=== PATIENT | male | born 1960 | race Caucasian/White ===

== ENCOUNTER 2018-07-27 09:59 | Emergency (ER) | payer BC, SELFPAY ==
[2018-07-27 10:00] VITALS: BP 178/118; PULSE 94; RESP 16; TEMP 36.7; O2SAT 100
--- NOTE | 2018-07-27 10:11 | DI.RAD.S_ITS ---
PROCEDURE: XR TOE RT MIN 2V INDICATIONS: infection, osteo? TECHNIQUE: 4 views of the right second toe(s) acquired. COMPARISON: None. FINDINGS: Bones: No acute fractures or dislocations. Soft tissue swelling overlying the tip of the right second toe is identified without underlying osseous erosions. No suspicious bony lesions. Soft tissues: No suspicious soft tissue densities. No radiographic evidence for soft tissue gas. IMPRESSION: Soft tissue swelling of the distal tip of the right second toe without underlying osseous abnormalities to suggest osteomyelitis. Dictated by: Aric Padron M.D. on 07/27/2018 at 10:49 Approved by: Aric Padron M.D. on 07/27/2018 at 10:51
--- NOTE | 2018-07-27 10:14 | ED.LOWEXIN ---
HPI - Extremity Injury (Lower) General Chief Complaint: Wound/Laceration Stated Complaint: R FOOT SECOND TOE OPEN INJURY,TYPE 2 DIABETIC Time Seen by Provider: 07/27/18 10:06 Source: patient Mode of arrival: ambulatory Limitations: no limitations History of Present Illness HPI Narrative: 57-year-old male nonsmoker with history of type 2 diabetes presents with a few days of worsening redness, swelling and pain of a toe on his right foot. 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 He states he does not have great shoes. He denies any systemic symptoms such as fever, chills nor nausea or vomiting. He states there has been some clearish drainage from the toe. He states it started as blood-filled blister and is of all to what we see today. complaint: foot injury Onset (ago): day(s) Type of Injury: unknown Place: home Severity: mild Relieving factors: nothing Exacerbating factors: weight bearing and movement Associated symptoms: swelling Other symptoms: none Related Data Home Medications Medication Instructions Recorded Confirmed Lipitor 1 tab PO DAILY 07/27/18 07/27/18 atenolol 100 mg PO DAILY 07/27/18 07/27/18 glipizide 1 tab PO DAILY 07/27/18 07/27/18 hydrochlorothiazide 25 mg PO DAILY 07/27/18 07/27/18 metformin 1,000 mg PO BID 07/27/18 07/27/18 Previous Rx's Medication Instructions Recorded amoxicillin-pot clavulanate 1 tab PO BID 14 Days #28 tab 07/27/18 [Augmentin] Allergies Allergy/AdvReac Type Severity Reaction Status Date / Time No Known Drug Allergies Allergy Verified 07/27/18 11:13 Review of Systems Constitutional Denies chills, Denies fever(s), Denies lethargy and Denies weakness Eyes Denies change in vision, Denies eye discharge, Denies irritation and Denies loss of vision ENT Ears, Nose, Mouth, and Throat: Denies change in voice, Denies neck pain and Denies sore throat Cardiovascular Denies chest pain, Denies irregular heart rhythm, Denies lightheadedness, Denies palpitations, Denies dyspnea, Denies dyspnea on exertion and Denies orthopnea Respiratory Denies cough, Denies dyspnea, Denies dyspnea on exertion and Denies wheezing Gastrointestinal Gastrointestinal: Denies abdominal pain, Denies change in bowel habits, Denies diarrhea, Denies nausea and Denies vomiting Genitourinary Denies hematuria, Denies flank pain, Denies urinary incontinence and Denies urinary urgency Musculoskeletal Denies neck pain Integumentary/Breasts Denies pruritus, Denies erythema, Denies rash, Reports skin pain, Reports skin swelling, Reports skin ulcer and Reports wounds Neurologic Denies confusion, Denies loss of vision and Denies weakness Psychiatric Denies anxiety, Denies confusion, Denies depression, Denies homicidal ideation and Denies suicidal ideation Endocrine Denies palpitations Hematologic/Lymphatic Denies easy bruising Allergic/Immunologic Denies wheezing [facility]LY [facility] Social History Smoking Status: Never smoker Exam Narrative Exam Narrative: GENERAL: 57-year-old male pleasant, anxious, morbidly obese, mild distress HEAD: Atraumatic. Normocephalic. No temporal or scalp tenderness. EYES: Pupils equal round and reactive. Extraocular motions intact. No scleral icterus. No injection or drainage. ENT: Nose without bleeding, purulent drainage or septal hematoma. Throat without erythema, tonsillar hypertrophy or exudate. Uvula midline. Airway patent. NECK: Trachea midline. No JVD or lymphadenopathy. Supple, nontender, no meningeal signs. CARDIOVASCULAR: Regular rate and rhythm without murmurs, gallops, or rubs. RESPIRATORY: Clear to auscultation. Breath sounds equal bilaterally. No wheezes, rales, or rhonchi. GASTROINTESTINAL: Abdomen soft, non-tender, nondistended. No hepato-splenomegaly, or palpable masses. No guarding. EXTREMITIES: Right 2nd toe swollen, painful, erythematous. Dry ulcer, sensation in tact but decreased. Wound culture obtained. BACK: Nontender without deformity or crepitance. No flank tenderness. NEURO: AOx3. SKIN: No rash or erythema. See above for description of 2nd toe Initial Vital Signs Initial Vital Signs: Vital Signs Temperature 98.1 F 07/27/18 10:00 Pulse Rate 94 H 07/27/18 10:00 Respiratory Rate 16 07/27/18 10:00 Blood Pressure 178/118 H 07/27/18 10:00 Pulse Oximetry 100 07/27/18 10:00 Course Orders Ordered: ED Orders 07/27/18 10:11 XR toe RT min 2V Stat 07/27/18 10:15 Wound Culture and Gram Stain Stat 07/27/18 11:09 Basic Metabolic Panel Stat C-Reactive Protein Quant Stat Complete Blood Count AUTO DIFF Stat Erythrocyte Sedimentation Rate Stat Hemoglobin A1C% w Est Avg Glu Stat Vital Signs - 8 hr 07/27/18 10:00 07/27/18 11:59 Temperature 98.1 F Pulse Rate 94 H 83 Respiratory Rate 16 18 Blood Pressure 178/118 H 159/97 H Pulse Oximetry 100 97 MDM - Extremity Injury (Lower) Lab Data Result diagrams: 07/27/18 11:09 07/27/18 11:09 Lab Results 07/27/18 07/27/18 07/27/18 Range/Units 11:09 11:09 11:09 WBC (4.5-11.0) X10^3/uL RBC (4.5-5.9) X10^6/uL Hgb (13.5-17.5) g/dL Hct (41-53) % MCV (80-100) fL MCH (26-34) PG MCHC (30-36) % RDW (11.6-14.8) % Plt Count (150-400) X10^3/uL Neut % (Auto) (50-75) % Lymph % (Auto) (25-40) % [place] % (Auto) (3-14) % Eos % (Auto) (2-4) % Baso % (Auto) (0-2) % Neut # (Auto) (7445-0343) /uL Lymph # (Auto) (8932-1214) /uL [place] # (Auto) (0-900) /uL Eos # (Auto) (0-450) /uL Baso # (Auto) (0-100) /uL ESR 11 (0-15) MM/HR Sodium (137-145) mmol/L Potassium (3.4-5.1) mmol/L Chloride (98-107) mmol/L Carbon Dioxide (22-32) mmol/L BUN (9-20) mg/dL Creatinine (0.66-1.25) mg/dL Estimated GFR (>60) mL/min BUN/Creatinine Ratio (6-22) Glucose (70-100) mg/dL Hemoglobin A1c 6.6 H (4.0-6.0) % Calcium (8.4-10.2) mg/dL C-Reactive Protein 1.1 H (<1.0) mg/dL 07/27/18 07/27/18 Range/Units 11:09 11:09 WBC 5.9 (4.5-11.0) X10^3/uL RBC 4.52 (4.5-5.9) X10^6/uL Hgb 13.5 (13.5-17.5) g/dL Hct 38.8 L (41-53) % MCV 85.7 (80-100) fL MCH 29.9 (26-34) PG MCHC 34.9 (30-36) % RDW 13.1 (11.6-14.8) % Plt Count 214 (150-400) X10^3/uL Neut % (Auto) 61.2 (50-75) % Lymph % (Auto) 25.1 (25-40) % [place] % (Auto) 11.4 (3-14) % Eos % (Auto) 1.5 L (2-4) % Baso % (Auto) 0.8 (0-2) % Neut # (Auto) 3600 (3826-1816) /uL Lymph # (Auto) 1500 (1489-2419) /uL [place] # (Auto) 700 (0-900) /uL Eos # (Auto) 100 (0-450) /uL Baso # (Auto) 0 (0-100) /uL ESR (0-15) MM/HR Sodium 141 (137-145) mmol/L Potassium 3.9 (3.4-5.1) mmol/L Chloride 106 (98-107) mmol/L Carbon Dioxide 26 (22-32) mmol/L BUN 27 H (9-20) mg/dL Creatinine 0.80 (0.66-1.25) mg/dL Estimated GFR > 60.0 (>60) mL/min BUN/Creatinine Ratio 33.8 H (6-22) Glucose 182 H (70-100) mg/dL Hemoglobin A1c (4.0-6.0) % Calcium 8.9 (8.4-10.2) mg/dL C-Reactive Protein (<1.0) mg/dL Discharge Plan Departure Patient Disposition: Home Clinical Impression: Cellulitis Qualifiers: Site of cellulitis: extremity Site of cellulitis of extremity: toe Laterality: right Qualified Code(s): L03.031 - Cellulitis of right toe Discharge Date/Time: 07/27/18 12:00 Interventions: ED Discharge Assessment Last Done: 07/27/18 11:59 Instructions: DI for Cellulitis -- Adult Activity Restrictions/Additional Instructions: *You have been diagnosed with [right 2nd toe cellulitis] *What to do: *Take medications as directed *Follow up with your primary care provider in 2-3 days, call for an appointment. Let them know you were seen in the Emergency Department and that we ask that you be seen in follow up. It would seem reasonable to follow with Wound Care and I've included their information. *Return to ER if you should have any new, worsening or concerning symptoms Prescriptions: New amoxicillin-pot clavulanate [Augmentin] 875-125 mg tablet 1 tab PO BID 14 Days Qty: 28 RF: 0 No Action metformin 500 mg Tablet 1,000 mg PO BID RF: 0 atenolol 100 mg Tablet 100 mg PO DAILY RF: 0 hydrochlorothiazide 25 mg Tablet 25 mg PO DAILY RF: 0 Lipitor 1 tab PO DAILY RF: 0 glipizide 1 tab PO DAILY RF: 0 Referrals: Nikhil Luna MD [Physician] -
--- NOTE | 2018-07-27 10:17 | ED_ITS ---
HPI - Extremity Injury (Lower) General Chief Complaint: Wound/Laceration Stated Complaint: R FOOT SECOND TOE OPEN INJURY,TYPE 2 DIABETIC Time Seen by Provider: 07/27/18 10:06 Source: patient Mode of arrival: ambulatory Limitations: no limitations History of Present Illness HPI Narrative: 57-year-old male nonsmoker with history of type 2 diabetes presents with a few days of worsening redness, swelling and pain of a toe on his right foot. 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 He states he does not have great shoes. He denies any systemic symptoms such as fever, chills nor nausea or vomiting. He states there has been some clearish drainage from the toe. He states it started as blood-filled blister and is of all to what we see today. complaint: foot injury Onset (ago): day(s) Type of Injury: unknown Place: home Severity: mild Relieving factors: nothing Exacerbating factors: weight bearing and movement Associated symptoms: swelling Other symptoms: none Related Data Home Medications Medication Instructions Recorded Confirmed Lipitor 1 tab PO DAILY 07/27/18 07/27/18 atenolol 100 mg PO DAILY 07/27/18 07/27/18 glipizide 1 tab PO DAILY 07/27/18 07/27/18 hydrochlorothiazide 25 mg PO DAILY 07/27/18 07/27/18 metformin 1,000 mg PO BID 07/27/18 07/27/18 Previous Rx's Medication Instructions Recorded amoxicillin-pot clavulanate 1 tab PO BID 14 Days #28 tab 07/27/18 [Augmentin] Allergies Allergy/AdvReac Type Severity Reaction Status Date / Time No Known Drug Allergies Allergy Verified 07/27/18 11:13 Review of Systems Constitutional Denies chills, Denies fever(s), Denies lethargy and Denies weakness Eyes Denies change in vision, Denies eye discharge, Denies irritation and Denies loss of vision ENT Ears, Nose, Mouth, and Throat: Denies change in voice, Denies neck pain and De nies sore throat Cardiovascular Denies chest pain, Denies irregular heart rhythm, Denies lightheadedness, Denies palpitations, Denies dyspnea, Denies dyspnea on exertion and Denies orthopnea Respiratory Denies cough, Denies dyspnea, Denies dyspnea on exertion and Denies wheezing Gastrointestinal Gastrointestinal: Denies abdominal pain, Denies change in bowel habits, Denies diarrhea, Denies nausea and Denies vomiting Genitourinary Denies hematuria, Denies flank pain, Denies urinary incontinence and Denies urinary urgency Musculoskeletal Denies neck pain Integumentary/Breasts Denies pruritus, Denies erythema, Denies rash, Reports skin pain, Reports skin swelling, Reports skin ulcer and Reports wounds Neurologic Denies confusion, Denies loss of vision and Denies weakness Psychiatric Denies anxiety, Denies confusion, Denies depression, Denies homicidal ideation and Denies suicidal ideation Endocrine Denies palpitations Hematologic/Lymphatic Denies easy bruising Allergic/Immunologic Denies wheezing [facility] Social History Smoking Status: Never smoker Exam Narrative Exam Narrative: GENERAL: 57-year-old male pleasant, anxious, morbidly obese, mild distress HEAD: Atraumatic. Normocephalic. No temporal or scalp tenderness. EYES: Pupils equal round and reactive. Extraocular motions intact. No scleral icterus. No injection or drainage. ENT: Nose without bleeding, purulent drainage or septal hematoma. Throat without erythema, tonsillar hypertrophy or exudate. Uvula midline. Airway patent. NECK: Trachea midline. No JVD or lymphadenopathy. Supple, nontender, no meningeal signs. CARDIOVASCULAR: Regular rate and rhythm without murmurs, gallops, or rubs. RESPIRATORY: Clear to auscultation. Breath sounds equal bilaterally. No wheezes, rales, or rhonchi. GASTROINTESTINAL: Abdomen soft, non-tender, nondistended. No hepato- splenomegaly, or palpable masses. No guarding. EXTREMITIES: Right 2nd toe swollen, painful, erythematous. Dry ulcer, sensation in tact but decreased. Wound culture obtained. BACK: Nontender without deformity or crepitance. No flank tenderness. NEURO: AOx3. SKIN: No rash or erythema. See above for description of 2nd toe Initial Vital Signs Initial Vital Signs: Vital Signs Temperature 98.1 F 07/27/18 10:00 Pulse Rate 94 H 07/27/18 10:00 Respiratory Rate 16 07/27/18 10:00 Blood Pressure 178/118 H 07/27/18 10:00 Pulse Oximetry 100 07/27/18 10:00 Course Orders Ordered: ED Orders 07/27/18 10:11 XR toe RT min 2V Stat 07/27/18 10:15 Wound Culture and Gram Stain Stat 07/27/18 11:09 Basic Metabolic Panel Stat C-Reactive Protein Quant Stat Complete Blood Count AUTO DIFF Stat Erythrocyte Sedimentation Rate Stat Hemoglobin A1C% w Est Avg Glu Stat Vital Signs - 8 hr 07/27/18 10:00 07/27/18 11:59 Temperature 98.1 F Pulse Rate 94 H 83 Respiratory Rate 16 18 Blood Pressure 178/118 H 159/97 H Pulse Oximetry 100 97 MDM - Extremity Injury (Lower) Lab Data Result diagrams: 07/27/18 11:09 07/27/18 11:09 Lab Results 07/27/18 07/27/18 07/27/18 Range/Units 11:09 11:09 11:09 WBC (4.5-11.0) X10^3/uL RBC (4.5-5.9) X10^6/uL Hgb (13.5-17.5) g/dL Hct (41-53) % MCV (80-100) fL MCH (26-34) PG MCHC (30-36) % RDW (11.6-14.8) % Plt Count (150-400) X10^3/uL Neut % (Auto) (50-75) % Lymph % (Auto) (25-40) % [place] % (Auto) (3-14) % Eos % (Auto) (2-4) % Baso % (Auto) (0-2) % Neut # (Auto) (4717-1915) /uL Lymph # (Auto) (9553-0998) /uL [place] # (Auto) (0-900) /uL Eos # (Auto) (0-450) /uL Baso # (Auto) (0-100) /uL ESR 11 (0-15) MM/HR Sodium (137-145) mmol/L Potassium (3.4-5.1) mmol/L Chloride (98-107) mmol/L Carbon Dioxide (22-32) mmol/L BUN (9-20) mg/dL Creatinine (0.66-1.25) mg/dL Estimated GFR (>60) mL/min BUN/Creatinine Ratio (6-22) Glucose (70-100) mg/dL Hemoglobin A1c 6.6 H (4.0-6.0) % Calcium (8.4-10.2) mg/dL C-Reactive Protein 1.1 H (<1.0) mg/dL 07/27/18 07/27/18 Range/Units 11:09 11:09 WBC 5.9 (4.5-11.0) X10^3/uL RBC 4.52 (4.5-5.9) X10^6/uL Hgb 13.5 (13.5-17.5) g/dL Hct 38.8 L (41-53) % MCV 85.7 (80-100) fL MCH 29.9 (26-34) PG MCHC 34.9 (30-36) % RDW 13.1 (11.6-14.8) % Plt Count 214 (150-400) X10^3/uL Neut % (Auto) 61.2 (50-75) % Lymph % (Auto) 25.1 (25-40) % [place] % (Auto) 11.4 (3-14) % Eos % (Auto) 1.5 L (2-4) % Baso % (Auto) 0.8 (0-2) % Neut # (Auto) 3600 (8659-8082) /uL Lymph # (Auto) 1500 (6405-8863) /uL [place] # (Auto) 700 (0-900) /uL Eos # (Auto) 100 (0-450) /uL Baso # (Auto) 0 (0-100) /uL ESR (0-15) MM/HR Sodium 141 (137-145) mmol/L Potassium 3.9 (3.4-5.1) mmol/L Chloride 106 (98-107) mmol/L Carbon Dioxide 26 (22-32) mmol/L BUN 27 H (9-20) mg/dL Creatinine 0.80 (0.66-1.25) mg/dL Estimated GFR > 60.0 (>60) mL/min BUN/Creatinine Ratio 33.8 H (6-22) Glucose 182 H (70-100) mg/dL Hemoglobin A1c (4.0-6.0) % Calcium 8.9 (8.4-10.2) mg/dL C-Reactive Protein (<1.0) mg/dL Discharge Plan Departure Patient Disposition: Home Clinical Impression: Cellulitis Qualifiers: Site of cellulitis: extremity Site of cellulitis of extremity: toe Laterality: right Qualified Code(s): L03.031 - Cellulitis of right toe Discharge Date/Time: 07/27/18 12:00 Interventions: ED Discharge Assessment Last Done: 07/27/18 11:59 Instructions: DI for Cellulitis -- Adult Activity Restrictions/Additional Instructions: *You have been diagnosed with [right 2nd toe cellulitis] *What to do: *Take medications as directed *Follow up with your primary care provider in 2-3 days, call for an appointment. Let them know you were seen in the Emergency Department and that we ask that you be seen in follow up. It would seem reasonable to follow with Wound Care and I've included their information. *Return to ER if you should have any new, worsening or concerning symptoms Prescriptions: New amoxicillin-pot clavulanate [Augmentin] 875-125 mg tablet 1 tab PO BID 14 Days Qty: 28 RF: 0 No Action metformin 500 mg Tablet 1,000 mg PO BID RF: 0 atenolol 100 mg Tablet 100 mg PO DAILY RF: 0 hydrochlorothiazide 25 mg Tablet 25 mg PO DAILY RF: 0 Lipitor 1 tab PO DAILY RF: 0 glipizide 1 tab PO DAILY RF: 0 Referrals: Nikhil Luna MD [Physician] -
[2018-07-27 11:21] LABS: Add Manual Diff / Slide Review NO; Basophils Absolute Auto 0 /uL (0-100); Basophils Percent Auto 0.8 % (0-2); Eosinophils Absolute Auto 100 /uL (0-450); Eosinophils Percent Auto 1.5 % (2-4); Hematocrit 38.8 % (41-53); Hemoglobin 13.5 g/dL (13.5-17.5); Lymphocytes Absolute Auto 1500 /uL (1100-4500); Lymphocytes Percent Auto 25.1 % (25-40); Mean Corpuscular HGB Conc 34.9 % (30-36); Mean Corpuscular Hemoglobin 29.9 PG (26-34); Mean Corpuscular Volume 85.7 fL (80-100); Monocytes Absolute Auto 700 /uL (0-900); Monocytes Percent Auto 11.4 % (3-14); Neutrophils Absolute Auto 3600 /uL (1500-7000); Neutrophils Percent Auto 61.2 % (50-75); Platelet Count 214 X10^3/uL (150-400); Red Blood Cell Count 4.52 X10^6/uL (4.5-5.9); Red Cell Distribution Width 13.1 % (11.6-14.8); White Blood Cell Count 5.9 X10^3/uL (4.5-11.0)
[2018-07-27 11:32] LABS: C-Reactive Protein Quant 1.1 mg/dL (<1.0)
[2018-07-27 11:37] LABS: Hemoglobin A1C% w Est Avg Glu 6.6 % (4.0-6.0)
[2018-07-27 11:44] LABS: Erythrocyte Sedimentation Rate 11 MM/HR (0-15)
[2018-07-27 11:59] VITALS: BP 159/97; PULSE 83; RESP 18; O2SAT 97
[2018-07-27 12:09] LABS: BUN Creatinine Ratio 33.8 (6-22); Blood Urea Nitrogen 27 mg/dL (9-20); Calcium 8.9 mg/dL (8.4-10.2); Carbon Dioxide 26 mmol/L (22-32); Chloride 106 mmol/L (98-107); Estimated Glomerular Filt Rate > 60.0 mL/min (>60); Glucose 182 mg/dL (70-100); HEMOLYSIS < 15 (0-50); Potassium 3.9 mmol/L (3.4-5.1); Sodium 141 mmol/L (137-145)
== END 2018-07-27 12:00 | disposition home or self-care (01) ==
PROVIDERS: Emergency Provider Emergency Medicine
DX: L03.031 Cellulitis of right toe (principal); E11.8 Type 2 diabetes mellitus with unspecified complications
CPT/HCPCS: 73660; 80048; 83036; 85025; 85651; 86140; 87070; 87075; 87077; 87186; 87205; 99283; 99284

== ENCOUNTER → 2018-08-10 09:15 | Outpatient (CLI) | payer BC, SELFPAY | PROVIDERS: PCP Internal Medicine; Visit Provider Podiatrist Primary Podiatric Medicine | DX: E11.621 Type 2 diabetes mellitus with foot ulcer (principal); L97.511 Non-pressure chronic ulcer of other part of right foot limited to breakdown of skin | CPT/HCPCS: 97597 ==

== ENCOUNTER → 2018-08-16 13:45 | Outpatient (CLI) | payer BC, SELFPAY | PROVIDERS: PCP Internal Medicine; Visit Provider Podiatrist Primary Podiatric Medicine | DX: E11.621 Type 2 diabetes mellitus with foot ulcer (principal); L97.511 Non-pressure chronic ulcer of other part of right foot limited to breakdown of skin | CPT/HCPCS: 97597; 99212 ==

== ENCOUNTER → 2018-08-23 08:58 | Outpatient (CLI) | payer BC, SELFPAY | PROVIDERS: PCP Internal Medicine; Visit Provider Podiatrist Primary Podiatric Medicine | DX: E11.621 Type 2 diabetes mellitus with foot ulcer (principal); L97.511 Non-pressure chronic ulcer of other part of right foot limited to breakdown of skin | CPT/HCPCS: 11042 ==

== ENCOUNTER → 2018-08-30 08:35 | Outpatient (CLI) | payer BC, SELFPAY | PROVIDERS: PCP Internal Medicine; Visit Provider Podiatrist Primary Podiatric Medicine | DX: E11.621 Type 2 diabetes mellitus with foot ulcer (principal); E11.40 Type 2 diabetes mellitus with diabetic neuropathy, unspecified; L97.511 Non-pressure chronic ulcer of other part of right foot limited to breakdown of skin | CPT/HCPCS: 11042 ==

== ENCOUNTER → 2018-09-06 08:50 | Outpatient (CLI) | payer BC, SELFPAY | PROVIDERS: PCP Internal Medicine; Visit Provider Podiatrist Primary Podiatric Medicine | DX: E11.621 Type 2 diabetes mellitus with foot ulcer (principal); L97.511 Non-pressure chronic ulcer of other part of right foot limited to breakdown of skin; M25.561 Pain in right knee | CPT/HCPCS: 97597; 99214 ==

== ENCOUNTER → 2018-09-13 09:49 | Outpatient (CLI) | payer BC, SELFPAY | PROVIDERS: PCP Internal Medicine; Visit Provider Podiatrist Primary Podiatric Medicine | DX: E11.621 Type 2 diabetes mellitus with foot ulcer (principal); E11.40 Type 2 diabetes mellitus with diabetic neuropathy, unspecified; L97.511 Non-pressure chronic ulcer of other part of right foot limited to breakdown of skin; R60.0 Localized edema; L90.8 Other atrophic disorders of skin | CPT/HCPCS: 97597 ==

== ENCOUNTER → 2018-09-20 09:18 | Outpatient (CLI) | payer BC, SELFPAY | PROVIDERS: PCP Internal Medicine; Visit Provider Podiatrist Primary Podiatric Medicine | DX: E11.621 Type 2 diabetes mellitus with foot ulcer (principal); L97.511 Non-pressure chronic ulcer of other part of right foot limited to breakdown of skin; M79.674 Pain in right toe(s) | CPT/HCPCS: 97597 ==

== ENCOUNTER → 2018-09-27 15:38 | Outpatient (CLI) | payer BC, SELFPAY | PROVIDERS: PCP Internal Medicine; Visit Provider Podiatrist Primary Podiatric Medicine | DX: E11.621 Type 2 diabetes mellitus with foot ulcer (principal); L97.511 Non-pressure chronic ulcer of other part of right foot limited to breakdown of skin | CPT/HCPCS: 97597 ==

== ENCOUNTER → 2018-10-04 13:13 | Outpatient (CLI) | payer BC, SELFPAY | PROVIDERS: PCP Internal Medicine; Visit Provider Podiatrist Primary Podiatric Medicine | DX: E11.621 Type 2 diabetes mellitus with foot ulcer (principal); E11.40 Type 2 diabetes mellitus with diabetic neuropathy, unspecified; L97.511 Non-pressure chronic ulcer of other part of right foot limited to breakdown of skin | CPT/HCPCS: 97597 ==

== ENCOUNTER 2018-10-11 08:32 | Inpatient (IN) | payer BC, SELFPAY ==
[2018-10-11] VITALS (8 sets, daily range): BP systolic 130–152; BP diastolic 75–93; PULSE 70–79; RESP 16–20; TEMP 36.5–37; O2SAT 94–99; BMI 36.5
--- NOTE | 2018-10-11 08:35 | ED.GENADULT ---
HPI - General Adult General Chief complaint: Extremity Problem,Nontraumatic Stated complaint: Thinks he has DVT in lower right leg Time Seen by Provider: 10/11/18 08:33 Source: patient Mode of arrival: ambulatory Limitations: no limitations History of Present Illness HPI narrative: Patient is a 57-year-old male. He is diabetic with the current diabetic ulcer on his right foot. He is here today for evaluation of what he thinks is a DVT in his right lower extremity. He states he has had a DVT in the past in his left lower extremity. He is not currently on anticoagulation. 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 He states that within the past 24 hours he notice a cramping sensation up his right inner thigh and in his calf. He states that it feels very similar to when he was diagnosed with a DVT in his left lower extremity. He is still ambulatory. He is also here to get his ulcer checked out. He states that he normally gets the bandages changed every Thursday and has not had the bandage changed since last Thursday. He states he has been feeling some pain in his toe which she normally does not have. Related Data Home Medications Medication Instructions Recorded Confirmed Lipitor 1 tab PO DAILY 07/27/18 10/11/18 atenolol 100 mg PO DAILY 07/27/18 10/11/18 glipizide 1 tab PO DAILY 07/27/18 10/11/18 hydrochlorothiazide 25 mg PO DAILY 07/27/18 10/11/18 metformin 1,000 mg PO BID 07/27/18 10/11/18 Allergies Allergy/AdvReac Type Severity Reaction Status Date / Time No Known Drug Allergies Allergy Verified 07/27/18 11:13 Review of Systems Constitutional Constitutional: Denies fever(s) Eyes Eyes: Denies loss of vision Cardiovascular Cardiovascular: Denies chest pain and Denies dyspnea Respiratory Respiratory: Denies dyspnea Gastrointestinal Gastrointestinal: Denies abdominal pain Genitourinary Genitourinary: Denies dysuria Musculoskeletal Comments: Right foot pain cramping in the right lower extremity Integumentary/Breasts Comments: Diabetic ulcer right foot Neurologic Neurologic: Denies focal weakness and Denies loss of vision Comments: Tingling in the right foot Hematologic/Lymphatic Hematologic/Lymphatic: Denies easy bleeding and Denies easy bruising PFS Medical History Diabetes (Inactive) DVT (deep venous thrombosis) (Acute) Social History Smoking Status: Never smoker Social History Smoking Status: Never smoker Exam Initial Vital Signs Initial Vital Signs: Vital Signs Temperature 97.9 F 10/11/18 08:45 Pulse Rate 79 10/11/18 08:45 Respiratory Rate 18 10/11/18 08:45 Blood Pressure 152/93 H 10/11/18 08:45 Pulse Oximetry 96 10/11/18 08:45 Resp Effort & Inspection: normal respiratory effort Cardio Rate: tachycardic Pulses: dorsalis pedis present on the right Skin Other: Patient with macerated 2nd toe on the right foot with swelling and surrounding erythema. Has an ulcer on the dorsum of the toe. Neuro General: alert and awake Cognition: normal cognition Speech: speech normal Extrem General: capillary refill normal Other: Minimal tenderness to the right thigh and right calf does have some tenderness to the anterior becker on the right Psych Appearance: grossly normal and well kempt Course Orders Ordered: ED Orders 10/11/18 08:42 XR foot RT min 3V Stat 10/11/18 08:43 US periph venous low extrem rt Stat 10/11/18 09:11 C-Reactive Protein Quant Stat Complete Blood Count AUTO DIFF Stat Comprehensive Metabolic Panel Stat Erythrocyte Sedimentation Rate Stat Lactate (Lactic Acid) Stat Lipase Stat Partial Thromboplastin Time Stat Procalcitonin Stat Prothrombin Time INR Stat 10/11/18 10:00 Blood Culture Stat Discontinued Medications Vancomycin HCl 2,000 mg/ (Sodium Chloride) 500 mls @ 250 mls/hr IV NOW ONE Stop: 10/11/18 09:25 Ceftriaxone Sodium/Dextrose (Rocephin) 2 gm in 50 mls @ 100 mls/hr IV NOW ONE Stop: 10/11/18 09:54 Last Admin: 10/11/18 09:29 Dose: 100 mls/hr Documented by: MISTY Vital Signs Vital signs: Vital Signs - 8 hr 10/11/18 08:45 10/11/18 10:16 Temperature 97.9 F Pulse Rate 79 71 Respiratory Rate 18 16 Blood Pressure 152/93 H Blood Pressure [Right Arm] 130/75 Pulse Oximetry 96 97 Medical Decision Making Lab Data Lab results reviewed: Yes I reviewed the patient's lab results. Result diagrams: 10/11/18 09:11 10/11/18 09:11 Labs: Lab Results 10/11/18 10/11/18 10/11/18 Range/Units 09:11 09:11 09:11 WBC 10.1 (4.5-11.0) X10^3/uL RBC 4.52 (4.5-5.9) X10^6/uL Hgb 13.3 L (13.5-17.5) g/dL Hct 38.7 L (41-53) % MCV 85.6 (80-100) fL MCH 29.5 (26-34) PG MCHC 34.4 (30-36) % RDW 13.2 (11.6-14.8) % Plt Count 234 (150-400) X10^3/uL Neut % (Auto) 76.5 H (50-75) % Lymph % (Auto) 11.2 L (25-40) % [place] % (Auto) 9.6 (3-14) % Eos % (Auto) 2.2 (2-4) % Baso % (Auto) 0.5 (0-2) % Neut # (Auto) 7800 H (1873-6095) /uL Lymph # (Auto) 1100 (3413-8479) /uL [place] # (Auto) 1000 H (0-900) /uL Eos # (Auto) 200 (0-450) /uL Baso # (Auto) 0 (0-100) /uL ESR 26 H (0-15) MM/HR PT 12.7 (10.1-12.7) SECONDS INR 1.1 (0.9-1.3) APTT 28 (26.4-36.2) SECONDS Sodium (137-145) mmol/L Potassium (3.4-5.1) mmol/L Chloride (98-107) mmol/L Carbon Dioxide (22-32) mmol/L BUN (9-20) mg/dL Creatinine (0.66-1.25) mg/dL Estimated GFR (>60) mL/min BUN/Creatinine Ratio (6-22) Glucose (70-100) mg/dL Lactate (0.7-2.1) mmol/L Calcium (8.4-10.2) mg/dL Total Bilirubin (0.2-1.3) mg/dL AST (17-59) IU/L ALT (21-72) IU/L Alkaline Phosphatase (38-126) U/L C-Reactive Protein (<1.0) mg/dL Total Protein (6.3-8.2) g/dL Albumin (3.5-5.0) g/dL Globulin (1.7-4.1) g/dL Albumin/Globulin Ratio (1.0-2.8) Lipase (23-300) U/L Procalcitonin 0.07 (<0.5) ng/mL 10/11/18 10/11/18 Range/Units 09:11 09:11 WBC (4.5-11.0) X10^3/uL RBC (4.5-5.9) X10^6/uL Hgb (13.5-17.5) g/dL Hct (41-53) % MCV (80-100) fL MCH (26-34) PG MCHC (30-36) % RDW (11.6-14.8) % Plt Count (150-400) X10^3/uL Neut % (Auto) (50-75) % Lymph % (Auto) (25-40) % [place] % (Auto) (3-14) % Eos % (Auto) (2-4) % Baso % (Auto) (0-2) % Neut # (Auto) (9629-8735) /uL Lymph # (Auto) (4083-5788) /uL [place] # (Auto) (0-900) /uL Eos # (Auto) (0-450) /uL Baso # (Auto) (0-100) /uL ESR (0-15) MM/HR PT (10.1-12.7) SECONDS INR (0.9-1.3) APTT (26.4-36.2) SECONDS Sodium 139 (137-145) mmol/L Potassium 4.1 (3.4-5.1) mmol/L Chloride 104 (98-107) mmol/L Carbon Dioxide 24 (22-32) mmol/L BUN 25 H (9-20) mg/dL Creatinine 0.80 (0.66-1.25) mg/dL Estimated GFR > 60.0 (>60) mL/min BUN/Creatinine Ratio 31.3 H (6-22) Glucose 165 H (70-100) mg/dL Lactate 1.7 (0.7-2.1) mmol/L Calcium 9.5 (8.4-10.2) mg/dL Total Bilirubin 0.6 (0.2-1.3) mg/dL AST 22 (17-59) IU/L ALT 14 L (21-72) IU/L Alkaline Phosphatase 69 (38-126) U/L C-Reactive Protein 12.5 H (<1.0) mg/dL Total Protein 7.4 (6.3-8.2) g/dL Albumin 4.0 (3.5-5.0) g/dL Globulin 3.4 (1.7-4.1) g/dL Albumin/Globulin Ratio 1.2 (1.0-2.8) Lipase 101 (23-300) U/L Procalcitonin (<0.5) ng/mL Imaging Data X-ray foot: Radiologist's impression: [address] [address] XRay Report Signed Patient: Juarez Jorge TMR#: [id number] : 2Acct:[id number] Age/Sex: 57 / MDate of Service: 10/11/18 Loc: ED Accession Number: [id number] Procedure: XR foot RT min 3V Ordering Provider: Yo Eckert D.O. PROCEDURE: XR FOOT RT MIN 3V INDICATIONS: 2nd toe ulcer and swelling eval for osteo TECHNIQUE: 3 views of the foot were acquired. COMPARISON: [facility], CR, XR TOE RT MIN 2V, 07/27/2018, 10:25. FINDINGS: Bones: There is now seen hai destruction of the distal phalanx of the 2nd toe. No additional focal bony lytic process can be seen. There is a remote, healed distal 5th metatarsal fracture. No acute fractures are seen. Soft tissues: Soft tissue swelling is seen involving the 2nd toe. IMPRESSION: Hai osteomyelitis of the distal phalanx of the 2nd toe, with bony destruction. Remote, healed distal 5th metatarsal fracture. Dictated by: Derek Albarran M.D. on 10/11/2018 at 8:11 Approved by: Derek Albarran M.D. on 10/11/2018 at 8:15 Venous US: Radiologist's impression: [address] [address] Ultrasound Report Signed Patient: Juarez Jorge TMR#: [id number] : 2Acct:[id number] Age/Sex: 57 / MDate of Service: 10/11/18 Loc: ED Accession Number: [id number] Procedure: US periph venous low extrem rt Ordering Provider: Yo Eckert D.O. PROCEDURE: US PERIPH VENOUS LOW EXTREM RT INDICATIONS: EDEMA TECHNIQUE: Real-time imaging, as well as color and pulse Doppler interrogation, were performed of the lower extremity deep veins from the inguinal ligament to the popliteal fossa. COMPARISON: None. FINDINGS: The common femoral, femoral and popliteal veins are normally compressible, and free of intraluminal thrombus. Color and pulse Doppler demonstrate normal phasic intraluminal flow. There is normal augmentation response to distal compression maneuver. IMPRESSION: Negative for deep venous thrombosis. Dictated by: Derek Albarran M.D. on 10/11/2018 at 8:35 Approved by: Derek Albarran M.D. on 10/11/2018 at 8:42 MDM Narrative Medical decision making narrative: Patient is nontoxic appearing. He has no signs of a DVT on his ultrasound however his right 2nd great toe is concerning for cellulitis/osteomyelitis. This was confirmed by is elevated ESR and CRP and also findings on the x-ray. Patient was given vancomycin and Rocephin. I did inform the patient of his diagnosis. Discussed the case with Dr. Bautista who will admit the patient for further evaluation and treatment. 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
--- NOTE | 2018-10-11 08:42 | DI.RAD.S_ITS ---
PROCEDURE: XR FOOT RT MIN 3V INDICATIONS: 2nd toe ulcer and swelling eval for osteo TECHNIQUE: 3 views of the foot were acquired. COMPARISON: [facility], , XR TOE RT MIN 2V, 07/27/2018, 10:25. FINDINGS: Bones: There is now seen hai destruction of the distal phalanx of the 2nd toe. No additional focal bony lytic process can be seen. There is a remote, healed distal 5th metatarsal fracture. No acute fractures are seen. Soft tissues: Soft tissue swelling is seen involving the 2nd toe. IMPRESSION: Hai osteomyelitis of the distal phalanx of the 2nd toe, with bony destruction. Remote, healed distal 5th metatarsal fracture. Dictated by: Derek Albarran M.D. on 10/11/2018 at 8:11 Approved by: Derek Albarran M.D. on 10/11/2018 at 8:15
--- NOTE | 2018-10-11 08:43 | DI.US.S_ITS ---
PROCEDURE: US PERIPH VENOUS LOW EXTREM RT INDICATIONS: EDEMA TECHNIQUE: Real-time imaging, as well as color and pulse Doppler interrogation, were performed of the lower extremity deep veins from the inguinal ligament to the popliteal fossa. COMPARISON: None. FINDINGS: The common femoral, femoral and popliteal veins are normally compressible, and free of intraluminal thrombus. Color and pulse Doppler demonstrate normal phasic intraluminal flow. There is normal augmentation response to distal compression maneuver. IMPRESSION: Negative for deep venous thrombosis. Dictated by: Derek Albarran M.D. on 10/11/2018 at 8:35 Approved by: Derek Albarran M.D. on 10/11/2018 at 8:42
--- NOTE | 2018-10-11 08:51 | PC.NURSE ---
Pt being treated for diabetic injury on his left toe 2nd digit, it is the same size as his great toe if not bigger, and macerated with skin breakdown. Pt denies pain from this. He reports pain in his right calf that if left alone is 0/10 pain but when he touches it it's a 10/10 pain. He arrived in a dressing that was due to be changed tomorrow. He wanted his other shoe off and he had some dried on blood from the bottom of his foot I was able to wash it off and he said it's probably pug shit. His feet smell of poor hygiene. Otherwise no other open sores or wounds on his feet other than the one stated above.
[2018-10-11 09:24] LABS: Add Manual Diff / Slide Review NO; Basophils Absolute Auto 0 /uL (0-100); Basophils Percent Auto 0.5 % (0-2); Eosinophils Absolute Auto 200 /uL (0-450); Eosinophils Percent Auto 2.2 % (2-4); Hematocrit 38.7 % (41-53); Hemoglobin 13.3 g/dL (13.5-17.5); Lymphocytes Absolute Auto 1100 /uL (1100-4500); Lymphocytes Percent Auto 11.2 % (25-40); Mean Corpuscular HGB Conc 34.4 % (30-36); Mean Corpuscular Hemoglobin 29.5 PG (26-34); Mean Corpuscular Volume 85.6 fL (80-100); Monocytes Absolute Auto 1000 /uL (0-900); Monocytes Percent Auto 9.6 % (3-14); Neutrophils Absolute Auto 7800 /uL (1500-7000); Neutrophils Percent Auto 76.5 % (50-75); Platelet Count 234 X10^3/uL (150-400); Red Blood Cell Count 4.52 X10^6/uL (4.5-5.9); Red Cell Distribution Width 13.2 % (11.6-14.8); White Blood Cell Count 10.1 X10^3/uL (4.5-11.0)
[2018-10-11 09:29] LABS: INR 1.1 (0.9-1.3); Prothrombin Time 12.7 SECONDS (10.1-12.7)
[2018-10-11] MEDS: CEFTRIAXONE 2 GM/50 ML FROZ.PIGGY IV (09:29)
[2018-10-11 09:32] LABS: PTT Partial Thromboplastin Tim 28 SECONDS (26.4-36.2)
[2018-10-11 09:35] LABS: Lactate (Lactic Acid) 1.7 mmol/L (0.7-2.1)
[2018-10-11 09:39] LABS: Alanine Aminotransferase 14 IU/L (21-72); Albumin Globulin Ratio 1.2 (1.0-2.8); Alkaline Phosphatase 69 U/L (38-126); Aspartate Aminotransferase 22 IU/L (17-59); BUN Creatinine Ratio 31.3 (6-22); Bilirubin Total 0.6 mg/dL (0.2-1.3); Blood Urea Nitrogen 25 mg/dL (9-20); Calcium 9.5 mg/dL (8.4-10.2); Carbon Dioxide 24 mmol/L (22-32); Chloride 104 mmol/L (98-107); Estimated Glomerular Filt Rate > 60.0 mL/min (>60); Globulin 3.4 g/dL (1.7-4.1); Glucose 165 mg/dL (70-100); HEMOLYSIS 50 (0-50); Lipase 101 U/L (23-300); Potassium 4.1 mmol/L (3.4-5.1); Sodium 139 mmol/L (137-145); Total Protein 7.4 g/dL (6.3-8.2)
[2018-10-11 09:58] LABS: C-Reactive Protein Quant 12.5 mg/dL (<1.0); Procalcitonin 0.07 ng/mL (<0.5)
[2018-10-11 09:59] LABS: Erythrocyte Sedimentation Rate 26 MM/HR (0-15)
[2018-10-11] MEDS: VANCOMYCIN 2,000 MG in SODIUM CHLORIDE 0.9% 500 ML 250 ML IV (10:56)
--- NOTE | 2018-10-11 12:14 | PM.HP.1 ---
History of Present Illness History of Present Illness Date Patient Seen: 10/11/18 Time Patient Seen: 12:14 Chief complaint: Thinks he has DVT in lower right leg Narrative: Juarez Jorge is a 57-year-old male with past medical history of diabetes, hypertension, hyperlipidemia and previous right 2nd toe ulcer which is chronic and for which he was following and wound care who presented with new right lower extremity pain for the past 2 days. Patient states he went back to work, and started noticing increasing pain 2 days ago, he did not try any new pain medications. He complains of an episode of fevers, chills, and sweatiness 2 days ago that has not returned since. He looked down at his right 2nd toe and it was enlarged and swollen, he has a picture from around 6 days ago which did not show this level of swelling and redness. He has peripheral neuropathy and cannot feel well so he had denied too much pain on his toe, but noted calf pain which has been worsening. He has a history of a DVT on the left and he states his symptoms were similar to that so he came into the emergency room for what he thought was a right lower extremity DVT. He denies any chest pain, shortness of breath, palpitations, nausea, vomiting, headaches, vision changes, or fatigue. In the emergency room, he had a right lower extremity Doppler which was negative for DVT. He did have an x-ray which showed hai osteomyelitis of his right 2nd toe. Upon my initial evaluation he has a purulent material around his 2nd toe on the R with swelling and erythema of that digit. It does not appear to proceed past the toe, and there is no redness or erythema in his calf. I have consulted Orthopedic surgery for assistance with his right 2nd toe osteomyelitis. Patient History Medical History (Updated 10/11/18 @ 12:29 by Piotr Bautista DO) Diabetes (Inactive) DVT (deep venous thrombosis) (Acute) Surgical History (Updated 10/11/18 @ 12:29 by Piotr Bautista DO) H/O hand surgery (Acute) H/O hernia repair (Acute) Social History household members: family Smoking Status: Never smoker Family & Social History Safety & Behavioral: Feels Safe in Current Yes Environment Been Physically Hurt or No Threatened By a Person Tobacco & Substance use: Smoking Status Never smoker alcohol intake frequency a few times a month Substance Use Type does not use Meds Home Medications and Allergies Home Medications Medication Instructions Recorded Confirmed Type Lipitor 1 tab PO DAILY 07/27/18 10/11/18 History atenolol 100 mg PO DAILY 07/27/18 10/11/18 History glipizide 1 tab PO DAILY 07/27/18 10/11/18 History hydrochlorothiazide 25 mg PO DAILY 07/27/18 10/11/18 History metformin 1,000 mg PO BID 07/27/18 10/11/18 History Allergies Allergy/AdvReac Type Severity Reaction Status Date / Time No Known Drug Allergies Allergy Verified 10/11/18 10:25 Review of Systems Review of Systems Narrative: All other systems reviewed with the patient and are negative unless otherwise stated. Exam Vital Signs (past 8 hours): - 10/11/18 08:45 10/11/18 10:16 10/11/18 11:05 Temperature 97.9 F 97.7 F Pulse Rate 79 71 74 Respiratory Rate 18 16 20 Blood Pressure 152/93 H 149/93 H Blood Pressure [Right Arm] 130/75 Pulse Oximetry 96 97 99 Oxygen Delivery Method Room Air Oxygen Flow Rate 0 Narrative Exam Narrative: GENERAL APPEARANCE: Well developed, well nourished, in no acute distress. SKIN: Inspection of the skin reveals no rashes, ulcerations or petechiae. HEENT: The sclerae were anicteric and conjunctivae were pink and moist. Extraocular movements were intact and pupils were equal, round with normal accommodation. External inspection of the ears and nose showed no scars, lesions, or masses. Lips, teeth, and gums showed normal mucosa. The oral mucosa, hard and soft palate, tongue and posterior pharynx were unremarkable. NECK: Supple and symmetric. There was no thyroid enlargement, and no tenderness, or masses were felt. CHEST: Normal AP diameter and normal contour without any kyphoscoliosis. LUNGS: Auscultation of the lungs revealed no wheezes, rhonchi, or rales. CARDIOVASCULAR: There was a regular rate and rhythm without any murmurs, gallops, rubs. Peripheral pulses were 2+ and symmetric. ABDOMEN: Soft and nontender with normal bowel sounds. No ascites was noted. MUSCULOSKELETAL: R 2nd toe tenderness, erythema, warmth. There is a purulent pocket of fluid on the dorsal aspect of the 2nd toe. There is no extension of the erythema beyond the 2nd digit but this digit is approximately twice the size of the surrounding toes. There is a chronic ulcer at the tip of the 2nd toe on the R which does not appear to be acutely infected. EXTREMITIES: No cyanosis, clubbing or edema. NEUROLOGIC: Alert and oriented x 3. Normal affect. Strength is +5/5 in the Upper Extremities and Lower Extremities Bilaterally. Sensation to touch was normal. Objective Labs Result Diagrams: 10/11/18 09:11 10/11/18 09:11 Labs: Laboratory Results - last 24 hr 10/11/18 10/11/18 10/11/18 09:11 09:11 09:11 WBC 10.1 RBC 4.52 Hgb 13.3 L Hct 38.7 L MCV 85.6 MCH 29.5 MCHC 34.4 RDW 13.2 Plt Count 234 Neut % (Auto) 76.5 H Lymph % (Auto) 11.2 L [place] % (Auto) 9.6 Eos % (Auto) 2.2 Baso % (Auto) 0.5 Neut # (Auto) 7800 H Lymph # (Auto) 1100 [place] # (Auto) 1000 H Eos # (Auto) 200 Baso # (Auto) 0 ESR 26 H PT 12.7 INR 1.1 APTT 28 Sodium Potassium Chloride Carbon Dioxide BUN Creatinine Estimated GFR BUN/Creatinine Ratio Glucose Lactate Calcium Total Bilirubin AST ALT Alkaline Phosphatase C-Reactive Protein Total Protein Albumin Globulin Albumin/Globulin Ratio Lipase Procalcitonin 0.07 10/11/18 10/11/18 09:11 09:11 WBC RBC Hgb Hct MCV MCH MCHC RDW Plt Count Neut % (Auto) Lymph % (Auto) [place] % (Auto) Eos % (Auto) Baso % (Auto) Neut # (Auto) Lymph # (Auto) [place] # (Auto) Eos # (Auto) Baso # (Auto) ESR PT INR APTT Sodium 139 Potassium 4.1 Chloride 104 Carbon Dioxide 24 BUN 25 H Creatinine 0.80 Estimated GFR > 60.0 BUN/Creatinine Ratio 31.3 H Glucose 165 H Lactate 1.7 Calcium 9.5 Total Bilirubin 0.6 AST 22 ALT 14 L Alkaline Phosphatase 69 C-Reactive Protein 12.5 H Total Protein 7.4 Albumin 4.0 Globulin 3.4 Albumin/Globulin Ratio 1.2 Lipase 101 Procalcitonin Assessment & Plan Assessment & Plan narrative: Juarez Jorge is a 57-year-old male with past medical history of diabetes, hypertension, hyperlipidemia and previous right 2nd toe ulcer which is chronic and for which he was following and wound care who presented with new right lower extremity pain for the past 2 days, on imaging he was found to have osteomyelitis of his right 2nd toe and is admitted to Medicine for further management. 1. Right 2nd toe osteomyelitis, acute, present on admission -radiography shows osteomyelitis of the right 2nd toe, new from previous imaging. He has elevated CRP, but no leukocytosis. -orthopedic surgery consulted, appreciate assistance, pending recommendations. -continue ceftriaxone, and vancomycin given purulence on exam. - obtain cultures when able 2. Diabetes, chronic, present on admission, control unknown - - [place] sliding scale insulin as inpatient - hold home metformin and glipizide. - A1c in AM 3. HTN, chronic, present on admission - - continue home atenolol and HCTZ 4. HLD, chronic, present on admission - - continue home lipitor, 40 mg daily. Dispo: Admitted as inpatient given his stay is likely to exceed 2 midnights. Code: Full DVT: HSQ BID FEN/GI: NPO pending orthopedic recommendations. Time Spent With Patient Time with patient: Greater than 35 minutes
--- NOTE | 2018-10-11 13:01 | P.CONS_ITS ---
History of Present Illness Consult details Date Patient Seen: 10/11/18 Time Patient Seen: 13:01 Chief complaint: Thinks he has DVT in lower right leg Reason for consult: R 2nd toe infection Requesting provider: Piotr Bautista Narrative: 57-year-old male with a diabetic 2nd toe infection on the right foot. Approximately 2 months ago he had an ulcer on the toe. 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 It seemed to be healing up. He actually brings in pictures over the past several weeks where the toe still had some ulceration but it was dry. He began having increasing pain into the right foot and when he examined the toe it was greatly swollen and appeared to have purulence. His other concern was that he had a DVT in his left leg in the past and he was concerned that he was having the same on now on the right leg. He did run a fever of approximately 3 nights ago but has been afebrile since. No chills. He is a diabetic and has pe ripheral neuropathy up to about the level of his ankles with very poor feeling in the toes. However he has been feeling more pain in the foot in the past several days. [facility] Medical History Diabetes (Inactive) DVT (deep venous thrombosis) (Acute) Surgical History H/O hand surgery (Acute) H/O hernia repair (Acute) Social History household members: family Smoking Status: Never smoker Social History household members: family Smoking Status: Never smoker Meds Home Medications and Allergies Home Medications Medication Instructions Recorded Confirmed Type Lipitor 1 tab PO DAILY 07/27/18 10/11/18 History atenolol 100 mg PO DAILY 07/27/18 10/11/18 History glipizide 1 tab PO DAILY 07/27/18 10/11/18 History hydrochlorothiazide 25 mg PO DAILY 07/27/18 10/11/18 History metformin 1,000 mg PO BID 07/27/18 10/11/18 History Allergies Allergy/AdvReac Type Severity Reaction Status Date / Time No Known Drug Allergies Allergy Verified 10/11/18 10:25 Review of Systems Constitutional Constitutional: Denies chills and Reports fever(s) Cardiovascular Cardiovascular: Denies chest pain Respiratory Respiratory: Denies cough and Denies wheezing Gastrointestinal Gastrointestinal: Denies abdominal pain Musculoskeletal Musculoskeletal: Reports numbness Neurologic Neurologic: Reports numbness Endocrine Endocrine: Denies change in body appearance Hematologic/Lymphatic Hematologic/Lymphatic: Denies easy bleeding Allergic/Immunologic Allergic/Immunologic: Denies wheezing Exam Vital Signs (past 8 hours): - 10/11/18 08:45 10/11/18 10:16 10/11/18 11:05 Temperature 97.9 F 97.7 F Pulse Rate 79 71 74 Respiratory Rate 18 16 20 Blood Pressure 152/93 H 149/93 H Blood Pressure [Right Arm] 130/75 Pulse Oximetry 96 97 99 Oxygen Delivery Method Room Air Oxygen Flow Rate 0 Const Orientation: alert and oriented x3 Extrem Other: Right foot -greatly swollen erythematous 2nd toe. 1 cm dry ulceration on the tip. Wet gangrenous changes along the distal phalanx, primarily yellow in color. Erythema and almost purplish color through the mid phalanx and erythema in the proximal phalanx. No erythema or induration or pain in the remaining toes or foot. Easily able to wiggle the great toe and the remaining lateral 3 toes. There is good capillary refill in all of these toes. Minimal sensation in all toes but decreased all the way up to the ankle bilaterally. Objective Imaging Right 2nd toe x-ray: My impression: Significant erosion of the distal phalanx of the 2nd toe. Possible mild periosteal reaction of the distal aspect of the middle phalanx. These are compared to his x-rays from 07/27/2018 which showed no bony erosion or osteomyelitis changes. Labs Result Diagrams: 10/11/18 09:11 10/11/18 09:11 Labs: Laboratory Results - last 24 hr 10/11/18 10/11/18 10/11/18 09:11 09:11 09:11 WBC 10.1 RBC 4.52 Hgb 13.3 L Hct 38.7 L MCV 85.6 MCH 29.5 MCHC 34.4 RDW 13.2 Plt Count 234 Neut % (Auto) 76.5 H Lymph % (Auto) 11.2 L [place] % (Auto) 9.6 Eos % (Auto) 2.2 Baso % (Auto) 0.5 Neut # (Auto) 7800 H Lymph # (Auto) 1100 [place] # (Auto) 1000 H Eos # (Auto) 200 Baso # (Auto) 0 ESR 26 H PT 12.7 INR 1.1 APTT 28 Sodium Potassium Chloride Carbon Dioxide BUN Creatinine Estimated GFR BUN/Creatinine Ratio Glucose Lactate Calcium Total Bilirubin AST ALT Alkaline Phosphatase C-Reactive Protein Total Protein Albumin Globulin Albumin/Globulin Ratio Lipase Procalcitonin 0.07 10/11/18 10/11/18 09:11 09:11 WBC RBC Hgb Hct MCV MCH MCHC RDW Plt Count Neut % (Auto) Lymph % (Auto) [place] % (Auto) Eos % (Auto) Baso % (Auto) Neut # (Auto) Lymph # (Auto) [place] # (Auto) Eos # (Auto) Baso # (Auto) ESR PT INR APTT Sodium 139 Potassium 4.1 Chloride 104 Carbon Dioxide 24 BUN 25 H Creatinine 0.80 Estimated GFR > 60.0 BUN/Creatinine Ratio 31.3 H Glucose 165 H Lactate 1.7 Calcium 9.5 Total Bilirubin 0.6 AST 22 ALT 14 L Alkaline Phosphatase 69 C-Reactive Protein 12.5 H Total Protein 7.4 Albumin 4.0 Globulin 3.4 Albumin/Globulin Ratio 1.2 Lipase 101 Procalcitonin Assessment & Plan Assessment & Plan narrative: Osteomyelitis of the right 2nd toe with wet gangrenous toe. With this much erosion, I do not think there is any way to save the toe and my recommendation is for amputation of the right 2nd toe. I anticipate amputation at the metatarsal phalangeal junction. He just had some food so we cannot do this today. I think a course of overnight IV antibiotics may be beneficial and help us decrease some of the swelling and erythema proximally, which may make closure easier after surgery. Risks and benefits of surgery were discussed including but not limited to medical risks with heart attack, stroke, , DVT, PE, wound healing complications, bleeding, injury to nerves with pain, numbness, paresthesias, failure to alleviate infection, need for further amputation, need for other further surgery. I did explain that most likely he will go on to have a bunion of the great toe once the 2nd toe is missing. This is something that can be dealt with electively in the future. For now the main issue is getting rid of gangrenous toe. We will plan on surgery tomorrow. All questions were answered. Consents were obtained.
--- NOTE | 2018-10-11 15:31 | PC.NURSE ---
Pt. received from ED at 1045. A&O x3, pleasant, no c/o pain. Right second toe very swollen, red, with open wound. (see Wound Care Doc.) Wound open to air. Confirmed osteomyelitis, pt. discussed POC with Dr. Jensen, plan for amputation tomorrow.
[2018-10-11] MEDS: ACETAMINOPHEN 325 MG TABLET 650 MG PO (16:43)
[2018-10-11] MEDS: OXYCODONE IR 5 MG TABLET PO ×2 (16:43→20:12)
[2018-10-11] MEDS: INSULIN ASPART 100 UNIT/ML INSULN PEN SUBCUT (16:46)
[2018-10-11] MEDS: VANCOMYCIN 1,500 MG/300 ML FROZ.PIGGY 200 MG IV (20:12)
[2018-10-11] MEDS: HEPARIN 5,000 UNIT/ML VIAL 5000 UNIT SUBCUT (20:12)
[2018-10-11] MEDS: ATORVASTATIN 20 MG TABLET 40 MG PO (20:12)
[2018-10-11] MEDS: SODIUM CHLORIDE 0.9% FLUSH 10 ML IV (20:20)
[2018-10-12] VITALS (14 sets, daily range): BP systolic 126–167; BP diastolic 68–112; PULSE 62–73; RESP 12–18; TEMP 36.3–37; O2SAT 97–99; BMI 35.9
[2018-10-12] MEDS: ACETAMINOPHEN 325 MG TABLET 650 MG PO ×2 (00:10→06:59)
[2018-10-12] MEDS: OXYCODONE IR 5 MG TABLET PO ×4 (00:10→21:58)
[2018-10-12] MEDS: VANCOMYCIN 1,500 MG/300 ML FROZ.PIGGY 200 MG IV ×3 (03:00→18:29)
[2018-10-12] MEDS: SODIUM CHLORIDE 0.9% FLUSH 10 ML IV ×2 (03:00→09:13)
[2018-10-12 05:29] LABS: Add Manual Diff / Slide Review NO; Basophils Absolute Auto 100 /uL (0-100); Eosinophils Absolute Auto 300 /uL (0-450); Eosinophils Percent Auto 4.5 % (2-4); Hematocrit 36.4 % (41-53); Hemoglobin 12.6 g/dL (13.5-17.5); Lymphocytes Absolute Auto 1800 /uL (1100-4500); Lymphocytes Percent Auto 29.9 % (25-40); Mean Corpuscular HGB Conc 34.6 % (30-36); Mean Corpuscular Hemoglobin 29.4 PG (26-34); Monocytes Absolute Auto 700 /uL (0-900); Monocytes Percent Auto 10.9 % (3-14); Neutrophils Absolute Auto 3300 /uL (1500-7000); Neutrophils Percent Auto 53.7 % (50-75); Platelet Count 218 X10^3/uL (150-400); Red Blood Cell Count 4.28 X10^6/uL (4.5-5.9); White Blood Cell Count 6.1 X10^3/uL (4.5-11.0)
[2018-10-12 05:33] LABS: BUN Creatinine Ratio 28.3 (6-22); Blood Urea Nitrogen 17 mg/dL (9-20); Calcium 8.3 mg/dL (8.4-10.2); Carbon Dioxide 26 mmol/L (22-32); Chloride 103 mmol/L (98-107); Estimated Glomerular Filt Rate > 60.0 mL/min (>60); Glucose 152 mg/dL (70-100); HEMOLYSIS < 15 (0-50); Magnesium 1.8 mg/dL (1.6-2.3); Potassium 3.9 mmol/L (3.4-5.1); Sodium 136 mmol/L (137-145)
[2018-10-12 05:36] LABS: Hemoglobin A1C% w Est Avg Glu 6.6 % (4.0-6.0)
--- NOTE | 2018-10-12 06:37 | PC.NURSE ---
Patient has been NPO since midnight. Medicated once with Percolone 5mg and Tylenol 650mg, effective for pain to Rt 2nd toe. Toe has been LEVI, no drainage, but does have odor. IV Vancomycin given. VSS.
--- NOTE | 2018-10-12 07:49 | PM.PN.1 ---
Subjective Subjective Date Patient Seen: 10/12/18 Time Patient Seen: 07:49 Interval history: No new changes. Still some discomfort in the right toe. Exam Vital Signs (past 8 hours): - 10/12/18 00:15 10/12/18 03:15 Temperature 97.7 F Pulse Rate 62 Respiratory Rate 16 Blood Pressure 135/88 Pulse Oximetry 98 97 Oxygen Delivery Method Room Air Oxygen Flow Rate 0 Const Orientation: alert and oriented x3 Extrem Other: Right 2nd toe -decreased swelling throughout and improved erythema proximally. Decreased sensation in the foot up to the ankle. Objective Labs Result Diagrams: 10/12/18 05:15 10/12/18 05:15 Labs: Laboratory Results - last 24 hr 10/11/18 10/11/18 10/11/18 09:11 09:11 09:11 WBC 10.1 RBC 4.52 Hgb 13.3 L Hct 38.7 L MCV 85.6 MCH 29.5 MCHC 34.4 RDW 13.2 Plt Count 234 Neut % (Auto) 76.5 H Lymph % (Auto) 11.2 L [place] % (Auto) 9.6 Eos % (Auto) 2.2 Baso % (Auto) 0.5 Neut # (Auto) 7800 H Lymph # (Auto) 1100 [place] # (Auto) 1000 H Eos # (Auto) 200 Baso # (Auto) 0 ESR 26 H PT 12.7 INR 1.1 APTT 28 Sodium Potassium Chloride Carbon Dioxide BUN Creatinine Estimated GFR BUN/Creatinine Ratio Glucose Hemoglobin A1c Lactate Calcium Magnesium Total Bilirubin AST ALT Alkaline Phosphatase C-Reactive Protein Total Protein Albumin Globulin Albumin/Globulin Ratio Lipase Procalcitonin 0.07 10/11/18 10/11/18 10/12/18 09:11 09:11 05:15 WBC 6.1 RBC 4.28 L Hgb 12.6 L Hct 36.4 L MCV 85.0 MCH 29.4 MCHC 34.6 RDW 13.0 Plt Count 218 Neut % (Auto) 53.7 D Lymph % (Auto) 29.9 [place] % (Auto) 10.9 Eos % (Auto) 4.5 H Baso % (Auto) 1.0 Neut # (Auto) 3300 Lymph # (Auto) 1800 [place] # (Auto) 700 Eos # (Auto) 300 Baso # (Auto) 100 ESR PT INR APTT Sodium 139 Potassium 4.1 Chloride 104 Carbon Dioxide 24 BUN 25 H Creatinine 0.80 Estimated GFR > 60.0 BUN/Creatinine Ratio 31.3 H Glucose 165 H Hemoglobin A1c Lactate 1.7 Calcium 9.5 Magnesium Total Bilirubin 0.6 AST 22 ALT 14 L Alkaline Phosphatase 69 C-Reactive Protein 12.5 H Total Protein 7.4 Albumin 4.0 Globulin 3.4 Albumin/Globulin Ratio 1.2 Lipase 101 Procalcitonin 10/12/18 10/12/18 05:15 05:15 WBC RBC Hgb Hct MCV MCH MCHC RDW Plt Count Neut % (Auto) Lymph % (Auto) [place] % (Auto) Eos % (Auto) Baso % (Auto) Neut # (Auto) Lymph # (Auto) [place] # (Auto) Eos # (Auto) Baso # (Auto) ESR PT INR APTT Sodium 136 L Potassium 3.9 Chloride 103 Carbon Dioxide 26 BUN 17 Creatinine 0.60 L Estimated GFR > 60.0 BUN/Creatinine Ratio 28.3 H Glucose 152 H Hemoglobin A1c 6.6 H Lactate Calcium 8.3 L Magnesium 1.8 Total Bilirubin AST ALT Alkaline Phosphatase C-Reactive Protein Total Protein Albumin Globulin Albumin/Globulin Ratio Lipase Procalcitonin Assessment & Plan Assessment & Plan narrative: Right 2nd toe osteomyelitis. Plan is to take him to the operating room today for a right 2nd toe amputation. All questions were again answered and we discussed surgery. He may have some clear liquids for breakfast and then back to npo diet. Surgery planned for this afternoon.
[2018-10-12] MEDS: CEFTRIAXONE 1 GM/50 ML FROZ.PIGGY IV (09:13)
[2018-10-12] MEDS: hydroCHLOROthiazide 25 MG TABLET PO (09:13)
[2018-10-12] MEDS: ATENOLOL 50 MG TABLET 100 MG PO (09:13)
[2018-10-12 11:12] LABS: Vancomycin Trough 12.3 ug/mL (10-20)
[2018-10-12] MEDS: VANCOMYCIN TROUGH 1 REQUEST MISC (11:25)
[2018-10-12] MEDS: INSULIN ASPART 100 UNIT/ML INSULN PEN SUBCUT ×2 (11:33→22:00)
--- NOTE | 2018-10-12 15:10 | PM.PN.1 ---
Subjective Subjective Date Patient Seen: 10/12/18 Interval history: The patient is a 57-year-old male who was admitted to the hospital for right diabetic foot infection. Patient has osteomyelitis of the right 2nd digit. In addition there is evidence of overlying cellulitis. He is scheduled to go to the operating room this afternoon. Patient reports getting some feeling back in his foot. Typically he has numbness under the foot. He has no nausea vomiting or diarrhea, no shortness of breath or chest pain. Exam Vital Signs (past 8 hours): - 10/12/18 09:31 10/12/18 11:31 Temperature 98.4 F Pulse Rate 64 Respiratory Rate 16 Blood Pressure 138/97 H Pulse Oximetry 98 99 Oxygen Delivery Method Room Air Oxygen Flow Rate 0 Narrative Exam Narrative: Pleasant gentleman resting comfortably in no obvious distress Lungs: Clear to auscultation Cardiac exam: Regular rate and rhythm normal S1-S2 Abdomen soft nontender nondistended Extremities: Right great toe, sausage in appearance erythema spreading up the forefoot, no warmth, no ulceration Objective Labs Result Diagrams: 10/12/18 05:15 10/12/18 05:15 Labs: Laboratory Results - last 24 hr 10/12/18 10/12/18 10/12/18 05:15 05:15 05:15 WBC 6.1 RBC 4.28 L Hgb 12.6 L Hct 36.4 L MCV 85.0 MCH 29.4 MCHC 34.6 RDW 13.0 Plt Count 218 Neut % (Auto) 53.7 D Lymph % (Auto) 29.9 [place] % (Auto) 10.9 Eos % (Auto) 4.5 H Baso % (Auto) 1.0 Neut # (Auto) 3300 Lymph # (Auto) 1800 [place] # (Auto) 700 Eos # (Auto) 300 Baso # (Auto) 100 Sodium 136 L Potassium 3.9 Chloride 103 Carbon Dioxide 26 BUN 17 Creatinine 0.60 L Estimated GFR > 60.0 BUN/Creatinine Ratio 28.3 H Glucose 152 H Hemoglobin A1c 6.6 H Calcium 8.3 L Magnesium 1.8 Vancomycin Trough 10/12/18 10:36 WBC RBC Hgb Hct MCV MCH MCHC RDW Plt Count Neut % (Auto) Lymph % (Auto) [place] % (Auto) Eos % (Auto) Baso % (Auto) Neut # (Auto) Lymph # (Auto) [place] # (Auto) Eos # (Auto) Baso # (Auto) Sodium Potassium Chloride Carbon Dioxide BUN Creatinine Estimated GFR BUN/Creatinine Ratio Glucose Hemoglobin A1c Calcium Magnesium Vancomycin Trough 12.3 Assessment & Plan Assessment & Plan narrative: Right 2nd toe osteomyelitis, acute, present on admission -radiography shows osteomyelitis of the right 2nd toe, new from previous imaging. He has elevated CRP, but no leukocytosis. -orthopedic surgery consulted, appreciate assistance, pending recommendations. -continue ceftriaxone, and vancomycin given purulence on exam. - obtain cultures when able 2. Diabetes, chronic, present on admission, control unknown - - [place] sliding scale insulin as inpatient - hold home metformin and glipizide. - A1c in AM 3. HTN, chronic, present on admission - - continue home atenolol and HCTZ 4. HLD, chronic, present on admission - - continue home lipitor, 40 mg daily.
--- NOTE | 2018-10-12 16:11 | PM.PREOP ---
Pre-operative Note Interval Note History & Physical reviewed/Exam performed by Physician: Yes Changes to H&P: No
--- NOTE | 2018-10-12 16:12 | PM.OP.1 ---
Operative Date/Time/Diagnoses Date of procedure: 10/12/18 Time of procedure: 17:26 Pre-op diagnosis: Right 2nd toe osteomyelitis and abscess Post-op diagnosis: same Procedure & Clinicians Procedure: Right 2nd toe amputation at the PIP joint Same procedure as scheduled: Yes Indications: 57-year-old male with a infected right 2nd toe. This had severe osteomyelitis with bony destruction and it was felt that surgical resection would be the best way to treat this. Risks and benefits of surgery discussed and appropriate consents obtained. Surgeon: Kavon Jensen Click Yes if Unassisted: Yes Anesthesia Type: General Operative Notes Findings: None Closure Type: primary Specimen(s): other (Wound cultures) Estimated Blood Loss (mL): 2 Procedure in detail: The patient was brought to the operating room and intubated on the table. Preoperative antibiotics were held for cultures. A time-out was performed. Attention was turned towards the well-marked right 2nd toe. The right leg was prepped and draped in the standard sterile fashion. A tourniquet had been placed on the thigh but was not inflated. First we spread open through the draining purulence ulcer up top and took cultures and sent this to microbiology. He appeared to have a good plantar skin flap and I made a fishmouth incision with a large plantar flap and a short dorsal flap at the level of the PIP joint. Above this dorsally was purulent material. I sharply cut down until we came to the PIP joint and then sharply transected this. His skin was examined. He still had no capillary refill or bleeding at the tip of the plantar skin flap and we transected this approximately 5 mm more proximally. He had good blood flow in the soft tissue as well as the skin at this point. There was some tension across the flap edges when I tried to pull them together so I used a rongeur to trim back the tip of the proximal phalanx. We could then closed the soft tissue without tension. The wound was copiously irrigated. The superficial tissue was closed with 3 O Vicryl. The skin was closed with retention sutures. A sterile dressing was placed. He was then extubated and brought to recovery room with no complications. The amputation was opened up. There was minimal bone in the distal phalanx. This tissue was rongeured and sent to microbiology for culture as well. Complications: none Post-operative Condition: stable Disposition: PACU Plan for aftercare: Inpatient IV antibiotics.
--- NOTE | 2018-10-12 16:26 | CM.DANOTE ---
Discharge Planning/Care Management DCP: assessment: case received, EMR reviewed. Discussed in Team Rounds. Pt is a 57 year old male who admitted to care of hospitalist team yesterday. Payer: [facility] out of [facility]. PCP: Dr. Delphine Hansen Pt has also been followed by podiatry. Consulting: orthopedic team: Dr. Jensen consulted. Dr. Rondon confirmed in rounds today that pt had diagnosis of R 2nd toe osteomylitis with overlying cellulitis and is non-insulin dependent diabetic/on oral medications at home. Now using on insulin protocol. Surgery with Dr. Jensen was planned for today with partial amputation of toe likely. Went to room to meet with pt and introduced self and role. Pt was still in surgery: white board in his room updated with DCP team contact info. P: DCP team to check in with pt tomorrow and continue the assessment process. Is unclear at this point if IV antibiotics will be continued after d/c.....team will be following. CM Discharge Assessment Start: 10/12/18 16:25 Freq: Status: Active Protocol: Document 10/12/18 16:25 ITV (Rec: 10/12/18 16:26 ITV [id number]) Discharge Planning Assessment Advance Directives? No Advance Directives on File No History Provided By Medical Record Prior Living Arrangements House Household Members family Independent with ADL's Yes Is patient alert and oriented? Yes Whiteboard Updated in Patient Room with Yes name and ext. # of Medicare Interviewer Review Status In Process
[2018-10-12] MEDS: CEFAZOLIN 2 GM/100 ML FROZ.PIGGY IV (17:00)
--- NOTE | 2018-10-12 17:08 | SUR.OPER ---
Supine on padded OR bed, head on pillow, arms secured on padded arm boards at <90 degrees abduction, legs uncrossed, safety belt at thigh, tape over blanket over lower legs.
[2018-10-12] MEDS: BUPIVACAINE 0.25% W/ EPI 30 ML VIAL INJ (17:13)
--- NOTE | 2018-10-12 17:18 | PC.NURSE ---
Addendum entered by Mary Farr R.N. 10/12/18 17:24: OR tin room to take pt. Original Note: 1600- Pt's daughter and son visiting. 97%RA, LS clear, denies SOB. Second toe right foot, less swelling today than yesterday, less to no odor, and less erythema, no weeping, PP+, CMS+, Surgery on way to take pt to OR for amputation of second toe to right foot. Anesthesiologist to check blood sugar. Pt BP 149/98, HR 64. Using urinal indep in bed. Call light in reach.
[2018-10-12] MEDS: LACTATED RINGERS 1,000 ML 125 ML IV (18:29)
[2018-10-12] MEDS: HYDROMORPHONE 0.5 MG INJ 0.2 MG IV ×2 (18:29→21:58)
[2018-10-12] MEDS: DOCUSATE 100 MG CAPSULE PO (21:57)
[2018-10-12] MEDS: METFORMIN HCL 500 MG TABLET 1000 MG PO (21:57)
[2018-10-13] MEDS: HYDROMORPHONE 0.5 MG INJ 0.2 MG IV ×3 (00:56→10:12)
[2018-10-13 01:00] VITALS: BP 142/96; PULSE 75; RESP 18; TEMP 36.7; O2SAT 98
[2018-10-13] MEDS: OXYCODONE IR 5 MG TABLET PO ×4 (02:40→16:30)
[2018-10-13] MEDS: VANCOMYCIN 1,500 MG/300 ML FROZ.PIGGY 200 MG IV ×2 (02:40→11:26)
[2018-10-13 03:00] VITALS: BP 152/99; RESP 17; TEMP 36.9; O2SAT 98
[2018-10-13 06:06] LABS: Add Manual Diff / Slide Review NO; Basophils Absolute Auto 100 /uL (0-100); Basophils Percent Auto 0.7 % (0-2); Eosinophils Absolute Auto 200 /uL (0-450); Eosinophils Percent Auto 2.2 % (2-4); Hematocrit 39.7 % (41-53); Hemoglobin 13.6 g/dL (13.5-17.5); Lymphocytes Absolute Auto 1700 /uL (1100-4500); Lymphocytes Percent Auto 19.6 % (25-40); Mean Corpuscular HGB Conc 34.3 % (30-36); Mean Corpuscular Hemoglobin 29.2 PG (26-34); Mean Corpuscular Volume 85.3 fL (80-100); Monocytes Absolute Auto 800 /uL (0-900); Monocytes Percent Auto 9.8 % (3-14); Neutrophils Absolute Auto 5700 /uL (1500-7000); Neutrophils Percent Auto 67.7 % (50-75); Platelet Count 256 X10^3/uL (150-400); Red Blood Cell Count 4.65 X10^6/uL (4.5-5.9); Red Cell Distribution Width 12.8 % (11.6-14.8); White Blood Cell Count 8.5 X10^3/uL (4.5-11.0)
[2018-10-13 06:14] LABS: Blood Urea Nitrogen 12 mg/dL (9-20); Calcium 8.7 mg/dL (8.4-10.2); Carbon Dioxide 26 mmol/L (22-32); Chloride 103 mmol/L (98-107); Estimated Glomerular Filt Rate > 60.0 mL/min (>60); Glucose 136 mg/dL (70-100); HEMOLYSIS < 15 (0-50); Magnesium 1.7 mg/dL (1.6-2.3); Potassium 4.1 mmol/L (3.4-5.1); Sodium 137 mmol/L (137-145)
[2018-10-13 07:20] VITALS: BP 152/95; PULSE 71; RESP 16; TEMP 36.6; O2SAT 98
[2018-10-13] MEDS: INSULIN ASPART 100 UNIT/ML INSULN PEN SUBCUT ×3 (07:20→16:31)
--- NOTE | 2018-10-13 08:11 | PM.PNPO.1 ---
Subjective Subjective Date Patient Seen: 10/13/18 Time Patient Seen: 08:11 Interval history: Doing well. Still some pain in the foot but much better than before. He has been up and ambulating. Exam Vital Signs (past 8 hours): - 10/13/18 01:00 10/13/18 03:00 Temperature 98.1 F 98.4 F Pulse Rate 75 Respiratory Rate 18 17 Blood Pressure 142/96 H 152/99 H Pulse Oximetry 98 98 Oxygen Delivery Method Room Air Oxygen Flow Rate 0 Const Orientation: alert and oriented x3 Extrem Other: Right foot dressing clean dry intact. Objective Labs Result Diagrams: 10/13/18 05:35 10/13/18 05:35 Labs: Laboratory Results - last 24 hr 10/12/18 10/13/18 10/13/18 10:36 05:35 05:35 WBC 8.5 RBC 4.65 Hgb 13.6 Hct 39.7 L MCV 85.3 MCH 29.2 MCHC 34.3 RDW 12.8 Plt Count 256 Neut % (Auto) 67.7 Lymph % (Auto) 19.6 L [place] % (Auto) 9.8 Eos % (Auto) 2.2 Baso % (Auto) 0.7 Neut # (Auto) 5700 Lymph # (Auto) 1700 [place] # (Auto) 800 Eos # (Auto) 200 Baso # (Auto) 100 Sodium 137 Potassium 4.1 Chloride 103 Carbon Dioxide 26 BUN 12 Creatinine 0.60 L Estimated GFR > 60.0 BUN/Creatinine Ratio 20.0 Glucose 136 H Calcium 8.7 Magnesium 1.7 Vancomycin Trough 12.3 Assessment & Plan Post-op Postoperative Procedures: Procedures Operation Date: 10/12/18 15:45 Actual Procedures Side Surgeon p 2nd toe amputation Right Kavon Jensen MD stable after right 2nd toe partial amputation. His Gram stain shows gram-positive cocci. A wound culture from 2 months ago grew sensitive Staph aureus as well as strep. Keep him on his current IV antibiotics. We will wait for current cultures and sensitivities.
[2018-10-13] MEDS: DOCUSATE 100 MG CAPSULE PO ×2 (09:24→20:41)
[2018-10-13] MEDS: ENOXAPARIN 30 MG/0.3 ML SYRINGE SUBCUT ×2 (09:24→20:44)
[2018-10-13] MEDS: CEFTRIAXONE 1 GM/50 ML FROZ.PIGGY IV (09:25)
[2018-10-13] MEDS: hydroCHLOROthiazide 25 MG TABLET PO (09:26)
[2018-10-13] MEDS: ATENOLOL 50 MG TABLET 100 MG PO (09:27)
--- NOTE | 2018-10-13 10:49 | PT.IIE ---
Current Diagnoses Type 2 diabetes mellitus with other specified complication (10/11/18) Surgery Performed Operation Date: 10/12/18 15:45 Actual Procedures p 2nd toe amputation(Right) - Kavon Jensen MD Surgical History (Last Reviewed 10/11/18 @ 13:05 by Kavon Jensen MD) H/O hand surgery (Acute) H/O hernia repair (Acute) Medical History (Last Reviewed 10/11/18 @ 13:05 by Kavon Jesnen MD) Diabetes (Inactive) DVT (deep venous thrombosis) (Acute) Physical Therapy Inpatient Evaluation/Re-Eval M1 PT/OT-IP Prior Functional Status Start: 10/13/18 08:22 Freq: NEEDED Status: Active Protocol: Document 10/13/18 09:25 HH (Rec: 10/13/18 10:49 [id number]) Medical Review Prior Functional Status Medical History Reviewed Yes Communication no deficits noted. Able to make needs known. Mobility and Gait independent for home and community mobility without using AD. Activities of Daily Living and IADL's independent for ADLs and IADLs . Able to drive. Social History Household Members family Living Arrangements House Number of Floors (Floors) One Floor Number of Stairs To Enter/Railing? 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 Pt has history of perihperal neuropathy with poor feet sensation who was treated for his infectious wound on R 2nd toe at wound care clinic for the past couple weeks. Other PMHs include: DMII, HTN, hyperlipidemia and previous right 2nd toe ulcer. M2 PT-IP Current Condition Start: 10/13/18 08:22 Freq: NEEDED Status: Active Protocol: Document 10/13/18 09:25 HH (Rec: 10/13/18 10:49 [email or web address]) Physical Therapy Current Condition Current Condition Evaluation Date 10/13/18 Treatment Diagnosis Post op 2nd toe amputation at PIP joint, difficulty in walking Onset Date 10/12/18 Weight Bearing Status Weight Bearing Status Weight Bear as Tolerated Allowed Weight Bearing Amount (enter % Per MD note, primarily to use or #) (%) R heel to WB M3 PT-IP Subjective Start: 10/13/18 08:22 Freq: NEEDED Status: Active Protocol: Document 10/13/18 09:25 (Rec: 10/13/18 10:49 [email or web address]) Subjective Physical Therapy Visit Type Type Initial Evaluation Visit Start Time 09:25 Visit Stop Time 09:50 Total Visit Minutes 25 Notes Pt has been gotten OOB with SBA and FWW. Number of SHRUB GROWER Visits 0 Physical Therapy Visit Comments Patient Comments agreeable to mobilize with PT Patient Goals To return home and work once he is recovered. Therapy Pain Assessment Pain When Pain Assessed After Treatment Pain Present Pain Present Pain Reported Location R 2nd toe Intensity 6 Scale Used Numeric (1 - 10) Description Acute Pain Management Techniques Re-positioning,Timing of Activity with Medications M4 PT-IP Mobility and Gait Start: 10/13/18 08:22 Freq: NEEDED Status: Active Protocol: Document 10/13/18 09:25 (Rec: 10/13/18 10:49 [email or web address]) PT-Bed Mobility Assessment Supine to Sit Supine to Sit Standby Assistance Sit to Supine Sit to Supine Standby Assistance Scooting Scooting to Edge of Bed Standby Assistance Scooting Up and Down in Bed Standby Assistance PT-Transfer Assessment Sit to and From Stand Sit to and from Stand Standby Assistance,Use of Upper Extremities Equipment Transfer Assistive Device Gait Belt,Front Wheeled Walker Orthotic/Prosthetic Devices or Brace: No Transfers Transfer Destination Bed,Chair,Toilet Transfer Technique Stand Step Pivot Transfer Ability Level of Assist Standby Assistance,Use of Upper Extremities Comments Mobility Comments Pt was up in bed upon assessment. He was able to supine to long sit, followed by pivoting his R foot to EOB with SBA. He overall needed SBA for transfers and sit <> stand, and primarily WB through his R heel. He was very safe in general and did not have any LOB episode. Gait Assessment Gait Gait Assistance Required: Standby Assistance Distance (Feet) 120 Able to Maintain Weight Bearing Status Yes During Gait Assistive Devices Assistive Device Gait Belt,Front Wheeled Walker Orthotic/Prosthetic Devices or Brace: No Gait Deviations General Gait Pattern Antalgic,Decreased Stride Length,Decreased Feet Clearance Factors Limiting Gait Function Factors Limiting Gait Function Decreased Activity Tolerance, Decreased Strength,Limited Range of Motion,Pain Comments Gait Comments Pt was able to amb from room to hallway with SBA and FWW. Pt does increase WB through his LLE and B UEs on FWW. He has decreased stance phase due to WB on R heel primarily. He did c/o increase in pain at surgical site after amb and requested to have pain meds from nursing staff. He was transferred to chair with leg elevated and call light within reach. PT-Balance Assessment Sitting Balance and Reactions Static Sitting Balance Ability Normal Dynamic Sitting Balance Ability Normal Standing Balance and Reactions Static Standing Balance Ability Normal Dynamic Standing Balance Ability Good Device Used FWW M5 PT-IP Objective Assessments Start: 10/13/18 08:22 Freq: NEEDED Status: Active Protocol: Document 10/13/18 09:25 HH (Rec: 10/13/18 10:49 [email or web address]) Orientation Orientation/Cognition Level of Alertness Alert Orientation Name,Age,Birthday,Month,Date, Year,Day of Week,Place, Situation Language Function Ability No Deficits Noted Safety Awareness Understands Safety Issues Memory Description No Deficits Noted Gross Range of Motion Upper Extremity ROM Assessment Within Functional Limits Lower Extremity ROM Assessment Within Functional Limits Strength Upper Extremity Strength Assessment Within Functional Limits Lower Extremity Strength Assessment Right Impaired Ankle 4-/5 Coordination Assessment Gross Coordination Gross Coordination WNL Sensation Assessment Sensation Gross Sensation Right LE Impaired,Left LE Impaired Light Touch Impaired Proprioception (Position) Impaired Sensation Description Numbness Comments Sensation Comments decreased sensation to touch for B feet Muscle Tone Muscle Tone WNL Yes M6 PT-IP Treatment Start: 10/13/18 08:22 Freq: NEEDED Status: Active Protocol: Document 10/13/18 09:25 HH (Rec: 10/13/18 10:49 [email or web address]) Physical Therapy Treatment Exercises Exercises Gluteal Sets,Quad Sets Education Education Provided Precautions,Weight Bearing Status,Post-Op Packet,Safety Other Treatments Other Treatment Performed proper full wear in future to increase full contact area with his feet education on regular self assessment on foot skin. M7 PT-IP Assessment and Plan Start: 10/13/18 08:22 Freq: NEEDED Status: Active Protocol: Document 10/13/18 09:25 HH (Rec: 10/13/18 10:49 [email or web address]) PT Summary Assessment and Plan Potential Rehabilitation Potential Excellent Status of Condition at Evaluation Stable Summary Impairments Pain,ROM,Strength,Balance,Bed Mobility,Transfers,Gait, Activity Tolerance Assessment Summary Pt is a low complexity with post op 2nd toe amputation at PIP joint due to chronic ulcer . Pt;s activity order is as tolerated and WBAT, but recommended by surgeon to primarily WB through R heel at this point. Pt overall demonstrates a very good understanding of safety awareness and his current condition. He was able to transfers and amb with overall SBA and FWW. He did c/o increase in pain at surgical site and requested for pain med from nursing staff at the end of session. He is expected to go home with family assistance and possible outpatient wound care service to cont antibiotic tx if necessary. Goals Bed Mobility Goal Independent Transfer Goal Independent,Front Wheeled Walker Gait Goal Independent,Front Wheel Walker Gait Distance 400 Other Goals 3 KING with B rails independently Days to Meet Goals 5 Frequency of Treatment Frequency Of Treatment Twice a Day Treatment Plan Physical Therapy Treatment Plan Bed Mobility Training,Transfer Training,Gait Training, Therapeutic Exercise,Balance Retraining,Post Op Education, Discharge Planning,Hot or Cold Pack,Neuromuscular Re-ed Other Recommendations and Next Treatment reassess pain Focus cont transfer and gait training as beti stair training if possible Recommendations To Nursing Amount of Assist Needed Standby Assistance Discharge Recommendations PT Discharge Recommendations Home with Assistance Other Discharge Recommendations He is expected to go home with family assistance and possible outpatient wound care service to cont antibiotic tx if necessary. Equipment Needed for Home Before pt states his son will get a Discharge FWW if possible if not, FWW for d/c home
[2018-10-13 11:14] LABS: Vancomycin Trough 12.5 ug/mL (10-20)
[2018-10-13] MEDS: METFORMIN XR 500 MG TABLET 1000 MG PO (11:25)
[2018-10-13 11:53] VITALS: BP 139/102; PULSE 71; RESP 18; TEMP 36.6; O2SAT 98
[2018-10-13] MEDS: VANCOMYCIN TROUGH 1 REQUEST MISC (12:04)
--- NOTE | 2018-10-13 14:47 | PC.NURSE ---
Pt up oob w/sba. Pt up in recliner chair for meals, Legs elevated. Pt med x 1 for c/o pain after PT/ambulation in [place]. Good relief stated. Drsg to the L foot/toe intact, + cms.
--- NOTE | 2018-10-13 16:24 | PM.PN.1 ---
Subjective Subjective Date Patient Seen: 10/13/18 Interval history: The patient is a 57-year-old male who was admitted to the hospital for osteomyelitis involving the right 2nd digit of the foot. He is status post amputation of his right 2nd toe. The patient previously was growing g positive organisms from the foot. He had both staph and strep previously. He will remain on IV antibiotics. Patient reports overall he feels much better today. He has no shortness of breath nausea vomiting or diarrhea. Exam Vital Signs (past 8 hours): - 10/13/18 11:53 Temperature 97.8 F Pulse Rate 71 Respiratory Rate 18 Blood Pressure 139/102 H Pulse Oximetry 98 Oxygen Delivery Method Room Air Oxygen Flow Rate 0 Narrative Exam Narrative: Pleasant male resting comfortably in no obvious distress Lungs: Clear to auscultation Cardiac exam: Regular Rate and rhythm normal S1-S2 Abdomen: Soft nontender nondistended Extremities: Right foot with dressing in place Objective Labs Result Diagrams: 10/13/18 05:35 10/13/18 05:35 Labs: Laboratory Results - last 24 hr 10/13/18 10/13/18 10/13/18 05:35 05:35 10:30 WBC 8.5 RBC 4.65 Hgb 13.6 Hct 39.7 L MCV 85.3 MCH 29.2 MCHC 34.3 RDW 12.8 Plt Count 256 Neut % (Auto) 67.7 Lymph % (Auto) 19.6 L [place] % (Auto) 9.8 Eos % (Auto) 2.2 Baso % (Auto) 0.7 Neut # (Auto) 5700 Lymph # (Auto) 1700 [place] # (Auto) 800 Eos # (Auto) 200 Baso # (Auto) 100 Sodium 137 Potassium 4.1 Chloride 103 Carbon Dioxide 26 BUN 12 Creatinine 0.60 L Estimated GFR > 60.0 BUN/Creatinine Ratio 20.0 Glucose 136 H Calcium 8.7 Magnesium 1.7 Vancomycin Trough 12.5 Assessment & Plan Assessment & Plan narrative: Impression 1. Osteomyelitis of the right 2nd digit, status post amputation. Suspect ongoing Gram-positive infection. Will continue IV antibiotics until final culture results are back. 2. Type 2 diabetes, continue sliding scale insulin plus bolus dosing of insulin 3. Hyperlipidemia, continue Lipitor 4. Hypertension would start BERE-inhibitor in discontinue atenolol.
--- NOTE | 2018-10-13 16:59 | PT.IPTN ---
Current Diagnoses Type 2 diabetes mellitus with other specified complication (10/11/18) Surgery Performed Operation Date: 10/12/18 15:45 Actual Procedures p 2nd toe amputation(Right) - Kavon Jensen MD Physical Therapy Treatment Note M2 PT-IP Current Condition Start: 10/13/18 08:22 Freq: NEEDED Status: Active Protocol: Document 10/13/18 09:25 HH (Rec: 10/13/18 10:49 [email or web address]) Physical Therapy Current Condition Current Condition Evaluation Date 10/13/18 Treatment Diagnosis Post op 2nd toe amputation at PIP joint, difficulty in walking Onset Date 10/12/18 Weight Bearing Status Weight Bearing Status Weight Bear as Tolerated Allowed Weight Bearing Amount (enter % Per MD note, primarily to use or #) (%) R heel to WB M3 PT-IP Subjective Start: 10/13/18 08:22 Freq: NEEDED Status: Active Protocol: Document 10/13/18 16:59 AB (Rec: 10/13/18 17:49 AB [id number]) Subjective Physical Therapy Visit Type Type Treatment Note Visit Start Time 16:59 Visit Stop Time 17:16 Total Visit Minutes 17 Number of MEDICAL LAB TECHNICIAN Visits 0 Physical Therapy Visit Comments Patient Comments pt agreeable to do PT Therapy Pain Assessment Pain When Pain Assessed At Rest Pain Present Pain Present Pain Reported Location R 2nd toe Intensity 2 Scale Used Numeric (1 - 10) Pain Management Techniques Re-positioning,Timing of Activity with Medications M4 PT-IP Mobility and Gait Start: 10/13/18 08:22 Freq: NEEDED Status: Active Protocol: Document 10/13/18 16:59 AB (Rec: 10/13/18 17:49 AB [id number]) PT-Bed Mobility Assessment Supine to Sit Supine to Sit Standby Assistance Sit to Supine Sit to Supine Standby Assistance Scooting Scooting to Edge of Bed Standby Assistance Scooting Up and Down in Bed Standby Assistance PT-Transfer Assessment Sit to and From Stand Sit to and from Stand Standby Assistance,Use of Upper Extremities Equipment Transfer Assistive Device Gait Belt,Front Wheeled Walker Orthotic/Prosthetic Devices or Brace: No Gait Assessment Gait Gait Assistance Required: Standby Assistance Distance (Feet) 150 Able to Maintain Weight Bearing Status Yes During Gait Assistive Devices Assistive Device Gait Belt,Front Wheeled Walker Orthotic/Prosthetic Devices or Brace: No Gait Deviations General Gait Pattern Antalgic,Decreased Stride Length,Decreased Feet Clearance,Step-to Gait Factors Limiting Gait Function Factors Limiting Gait Function Decreased Activity Tolerance, Decreased Sensation,Limited Range of Motion,Pain M5 PT-IP Objective Assessments Start: 10/13/18 08:22 Freq: NEEDED Status: Active Protocol: Document 10/13/18 09:25 HH (Rec: 10/13/18 10:49 [email or web address]) Orientation Orientation/Cognition Level of Alertness Alert Orientation Name,Age,Birthday,Month,Date, Year,Day of Week,Place, Situation Language Function Ability No Deficits Noted Safety Awareness Understands Safety Issues Memory Description No Deficits Noted Gross Range of Motion Upper Extremity ROM Assessment Within Functional Limits Lower Extremity ROM Assessment Within Functional Limits Strength Upper Extremity Strength Assessment Within Functional Limits Lower Extremity Strength Assessment Right Impaired Ankle 4-/5 Coordination Assessment Gross Coordination Gross Coordination WNL Sensation Assessment Sensation Gross Sensation Right LE Impaired,Left LE Impaired Light Touch Impaired Proprioception (Position) Impaired Sensation Description Numbness Comments Sensation Comments decreased sensation to touch for B feet Muscle Tone Muscle Tone WNL Yes M6 PT-IP Treatment Start: 10/13/18 08:22 Freq: NEEDED Status: Active Protocol: Document 10/13/18 09:25 HH (Rec: 10/13/18 10:49 [email or web address]) Physical Therapy Treatment Exercises Exercises Gluteal Sets,Quad Sets Education Education Provided Precautions,Weight Bearing Status,Post-Op Packet,Safety Other Treatments Other Treatment Performed proper full wear in future to increase full contact area with his feet education on regular self assessment on foot skin. M7 PT-IP Assessment and Plan Start: 10/13/18 08:22 Freq: NEEDED Status: Active Protocol: Document 10/13/18 16:59 AB (Rec: 10/13/18 17:49 AB [id number]) PT Summary Assessment and Plan Potential Rehabilitation Potential Good Summary Impairments Pain,ROM,Strength,Balance, Sensation,Bed Mobility, Transfers,Gait,Activity Tolerance Progress Towards Goals Progressing Toward Goals Assessment Summary pt doing well with mobility. pt able to maintain weight bearing precaution on RLE but may benefit from front off loading post-op shoe to decrease weight bearing on surgery site especially on uneven surfaces and when pt goes home. will request MD for orders. pt plans to go home and family will assist him. pt doing fairly well with mobility but will continue to assess progress and consistency in mobility especially when new post-op shoe is provided. if pt is able to manage off loading shoe, may only need once a day PT tx frequency but at this time will continue with current tx plan and to assess progress. Goals Bed Mobility Goal Independent Transfer Goal Independent,Front Wheeled Walker Gait Goal Independent,Front Wheel Walker Gait Distance 400 Other Goals 3 KING with B rails independently LTG: improve ambulation using SPC ~ 250 ft SBA Days to Meet Goals 5 Frequency of Treatment Frequency Of Treatment Twice a Day Treatment Plan Physical Therapy Treatment Plan Bed Mobility Training,Transfer Training,Gait Training, Therapeutic Exercise,Balance Retraining,Post Op Education, Discharge Planning,Hot or Cold Pack,Neuromuscular Re-ed, Coordination Retraining Other Recommendations and Next Treatment ambulation; will request MD Focus order for front off loading post-op shoe Recommendations To Nursing Amount of Assist Needed Standby Assistance Discharge Recommendations PT Discharge Recommendations Home with Assistance Equipment Needed for Home Before FWW if not safe with SPC Discharge
[2018-10-13] MEDS: OXYCODONE IR 10 MG TABLET PO ×2 (17:42→21:40)
[2018-10-13] MEDS: VANCOMYCIN 2,000 MG in SODIUM CHLORIDE 0.9% 500 ML 250 ML IV (17:44)
[2018-10-13 19:30] VITALS: BP 153/104; PULSE 80; RESP 18; TEMP 36.6; O2SAT 98
[2018-10-13] MEDS: ATORVASTATIN 10 MG TABLET PO (20:41)
[2018-10-13] MEDS: INSULIN GLARGINE 100 UNIT/ML 3ML PEN 10 UNIT SUBCUT (20:44)
[2018-10-13] MEDS: ONDANSETRON 4 MG ODT PO (21:40)
--- NOTE | 2018-10-13 22:21 | PC.NURSE ---
Patient resting in bed most of the shift. Did get up once with PT, tolerated well, gait steady. Patient did have some increased pain to the rt 2nd toe, received new order for increase in oxycodone. Patient has been calm and cooperative.
[2018-10-14 01:01] VITALS: BP 140/94; PULSE 71; RESP 16; TEMP 36.6; O2SAT 95
[2018-10-14] MEDS: OXYCODONE IR 10 MG TABLET PO ×4 (01:38→22:19)
[2018-10-14] MEDS: VANCOMYCIN 2,000 MG in SODIUM CHLORIDE 0.9% 500 ML 250 ML IV ×2 (01:39→11:08)
[2018-10-14 03:59] VITALS: BP 144/93; PULSE 66; RESP 20; TEMP 36.4; O2SAT 97
[2018-10-14 05:58] LABS: Add Manual Diff / Slide Review NO; Basophils Absolute Auto 100 /uL (0-100); Basophils Percent Auto 0.7 % (0-2); Eosinophils Absolute Auto 100 /uL (0-450); Eosinophils Percent Auto 1.9 % (2-4); Hematocrit 39.8 % (41-53); Hemoglobin 13.7 g/dL (13.5-17.5); Lymphocytes Absolute Auto 1800 /uL (1100-4500); Lymphocytes Percent Auto 24.9 % (25-40); Mean Corpuscular HGB Conc 34.5 % (30-36); Mean Corpuscular Hemoglobin 29.2 PG (26-34); Mean Corpuscular Volume 84.8 fL (80-100); Monocytes Absolute Auto 800 /uL (0-900); Monocytes Percent Auto 11.6 % (3-14); Neutrophils Absolute Auto 4500 /uL (1500-7000); Neutrophils Percent Auto 60.9 % (50-75); Platelet Count 255 X10^3/uL (150-400); Red Cell Distribution Width 12.9 % (11.6-14.8); White Blood Cell Count 7.3 X10^3/uL (4.5-11.0)
[2018-10-14 06:04] LABS: BUN Creatinine Ratio 17.1 (6-22); Blood Urea Nitrogen 12 mg/dL (9-20); Calcium 8.8 mg/dL (8.4-10.2); Carbon Dioxide 28 mmol/L (22-32); Chloride 104 mmol/L (98-107); Estimated Glomerular Filt Rate > 60.0 mL/min (>60); Glucose 135 mg/dL (70-100); HEMOLYSIS < 15 (0-50); Magnesium 1.8 mg/dL (1.6-2.3); Potassium 3.6 mmol/L (3.4-5.1); Sodium 139 mmol/L (137-145)
--- NOTE | 2018-10-14 07:45 | P.PN_ITS ---
Subjective Subjective Date Patient Seen: 10/14/18 Time Patient Seen: 07:46 Interval history: some pain in the toe but overall it feels to be much better. Exam Vital Signs (past 8 hours): - 10/14/18 01:01 10/14/18 03:59 Temperature 97.9 F 97.5 F L Pulse Rate 71 66 Respiratory Rate 16 20 Blood Pressure 140/94 H 144/93 H Pulse Oximetry 95 97 Oxygen Delivery Method Room Air Oxygen Flow Rate 0 Const Orientation: alert and oriented x3 Extrem Other: Right 2nd toe dressing taken down. Mild normal postoperative induration around the toe down to the MTP joint. good capillary refill to the tip of the toe. Objective Labs Result Diagrams: 10/14/18 05:35 10/14/18 05:35 Labs: Laboratory Results - last 24 hr 10/13/18 10/14/18 10/14/18 10:30 05:35 05:35 WBC 7.3 RBC 4.70 Hgb 13.7 Hct 39.8 L MCV 84.8 MCH 29.2 MCHC 34.5 RDW 12.9 Plt Count 255 Neut % (Auto) 60.9 Lymph % (Auto) 24.9 L [place] % (Auto) 11.6 Eos % (Auto) 1.9 L Baso % (Auto) 0.7 Neut # (Auto) 4500 Lymph # (Auto) 1800 [place] # (Auto) 800 Eos # (Auto) 100 Baso # (Auto) 100 Sodium 139 Potassium 3.6 Chloride 104 Carbon Dioxide 28 BUN 12 Creatinine 0.70 Estimated GFR > 60.0 BUN/Creatinine Ratio 17.1 Glucose 135 H Calcium 8.8 Magnesium 1.8 Vancomycin Trough 12.5 Assessment & Plan Post-op Postoperative Procedures: Procedures Operation Date: 10/12/18 15:45 Actual Procedures Side Surgeon p 2nd toe amputation Right Kavon Jensen MD He is growing Staph aureus. We are awaiting sensitivities for now. Continue IV antibiotics. Anticipate discharge home tomorrow once we have sensitivities. I would like him to finish 1 more day of IV antibiotics before switching to ora ls.
--- NOTE | 2018-10-14 08:28 | CM.DPC ---
DCP Cont: Was going to check in with patient yesterday, had family visiting. Patient has been ambulatory. Noted Dr. Jensen's note that patient could be discharged home tomorrow on oral antibiotics. Goal is for another day here on IV antibiotics, and culture is pending. P: DCP to continue to follow closely, and be available for any resources that patient may need. Goal if for patient to go home on oral antibiotics. Apurva Davila RN/Ball Fringe Machine Operator
[2018-10-14] MEDS: INSULIN ASPART 100 UNIT/ML INSULN PEN SUBCUT ×3 (09:24→17:27)
[2018-10-14] MEDS: ENOXAPARIN 30 MG/0.3 ML SYRINGE SUBCUT ×2 (09:25→20:14)
[2018-10-14] MEDS: CEFTRIAXONE 1 GM/50 ML FROZ.PIGGY IV (09:25)
[2018-10-14] MEDS: LISINOPRIL 5 MG TABLET PO (09:25)
[2018-10-14] MEDS: DOCUSATE 100 MG CAPSULE PO ×2 (09:26→20:14)
[2018-10-14] MEDS: ATENOLOL 50 MG TABLET 100 MG PO (09:27)
--- NOTE | 2018-10-14 11:15 | PT.IPTN ---
Current Diagnoses Type 2 diabetes mellitus with other specified complication (10/11/18) Surgery Performed Operation Date: 10/12/18 15:45 Actual Procedures p 2nd toe amputation(Right) - Kavon Jensen MD Physical Therapy Treatment Note M2 PT-IP Current Condition Start: 10/13/18 08:22 Freq: NEEDED Status: Active Protocol: Document 10/13/18 09:25 HH (Rec: 10/13/18 10:49 [email or web address]) Physical Therapy Current Condition Current Condition Evaluation Date 10/13/18 Treatment Diagnosis Post op 2nd toe amputation at PIP joint, difficulty in walking Onset Date 10/12/18 Weight Bearing Status Weight Bearing Status Weight Bear as Tolerated Allowed Weight Bearing Amount (enter % Per MD note, primarily to use or #) (%) R heel to WB M3 PT-IP Subjective Start: 10/13/18 08:22 Freq: NEEDED Status: Active Protocol: Document 10/14/18 11:12 GGD (Rec: 10/14/18 12:17 GGD [email or web address]) Subjective Physical Therapy Visit Type Type Treatment Note Visit Start Time 10:52 Visit Stop Time 11:15 Total Visit Minutes 23 Number of MANAGER HUMAN RESOURCES Visits 1 Physical Therapy Visit Comments Patient Comments Pt willing to work with therapy. Therapy Pain Assessment Pain When Pain Assessed At Rest Pain Present Pain Present Pain Reported M4 PT-IP Mobility and Gait Start: 10/13/18 08:22 Freq: NEEDED Status: Active Protocol: Document 10/14/18 11:12 GGD (Rec: 10/14/18 12:17 GGD [email or web address]) PT-Transfer Assessment Sit to and From Stand Sit to and from Stand Standby Assistance,Use of Upper Extremities Equipment Transfer Assistive Device Gait Belt,Front Wheeled Walker Orthotic/Prosthetic Devices or Brace: No Transfers Transfer Destination Toilet Transfer Ability Level of Assist Standby Assistance,Use of Upper Extremities Gait Assessment Gait Gait Assistance Required: Standby Assistance Distance (Feet) 300 Able to Maintain Weight Bearing Status Yes During Gait Assistive Devices Assistive Device None,Gait Belt,Front Wheeled Walker Orthotic/Prosthetic Devices or Brace: No Gait Deviations General Gait Pattern Antalgic,Decreased Stride Length,Decreased Feet Clearance,Step-to Gait Factors Limiting Gait Function Factors Limiting Gait Function Decreased Activity Tolerance, Decreased Sensation,Limited Range of Motion,Pain Comments Gait Comments Pt ambulated with FWW x 150 and then pusing IV pole x 150 with SBA to CGA. M5 PT-IP Objective Assessments Start: 10/13/18 08:22 Freq: NEEDED Status: Active Protocol: Document 10/13/18 09:25 (Rec: 10/13/18 10:49 [email or web address]) Orientation Orientation/Cognition Level of Alertness Alert Orientation Name,Age,Birthday,Month,Date, Year,Day of Week,Place, Situation Language Function Ability No Deficits Noted Safety Awareness Understands Safety Issues Memory Description No Deficits Noted Gross Range of Motion Upper Extremity ROM Assessment Within Functional Limits Lower Extremity ROM Assessment Within Functional Limits Strength Upper Extremity Strength Assessment Within Functional Limits Lower Extremity Strength Assessment Right Impaired Ankle 4-/5 Coordination Assessment Gross Coordination Gross Coordination WNL Sensation Assessment Sensation Gross Sensation Right LE Impaired,Left LE Impaired Light Touch Impaired Proprioception (Position) Impaired Sensation Description Numbness Comments Sensation Comments decreased sensation to touch for B feet Muscle Tone Muscle Tone WNL Yes M6 PT-IP Treatment Start: 10/13/18 08:22 Freq: NEEDED Status: Active Protocol: Document 10/13/18 09:25 (Rec: 10/13/18 10:49 [email or web address]) Physical Therapy Treatment Exercises Exercises Gluteal Sets,Quad Sets Education Education Provided Precautions,Weight Bearing Status,Post-Op Packet,Safety Other Treatments Other Treatment Performed proper full wear in future to increase full contact area with his feet education on regular self assessment on foot skin. M7 PT-IP Assessment and Plan Start: 10/13/18 08:22 Freq: NEEDED Status: Active Protocol: Document 10/14/18 11:12 GGD (Rec: 10/14/18 12:17 GGD [email or web address]) PT Summary Assessment and Plan Summary Assessment Summary Pt improving with mobility. He was able to progress gait distance. He was sable with gait without FWW. He was abl e to maintain weight bearing precautions. Frequency of Treatment Frequency Of Treatment Once a Day Treatment Plan Physical Therapy Treatment Plan Bed Mobility Training,Transfer Training,Gait Training, Therapeutic Exercise,Balance Retraining,Post Op Education, Discharge Planning,Hot or Cold Pack,Neuromuscular Re-ed, Coordination Retraining Other Recommendations and Next Treatment ambulation; will request MD Focus order for front off loading post-op shoe Recommendations To Nursing Amount of Assist Needed Standby Assistance Discharge Recommendations PT Discharge Recommendations Home with Assistance
--- NOTE | 2018-10-14 11:17 | CM.DPC ---
DCP Cont: Met with patient. Introduced self and role. Pleasant individual. 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 He mentioned that he had gone to wound clinic prior to hospitalization, and does not have a desire to return there. He stated that he is to follow up with Reva Song, core measures abstractor, at discharge. P.T. is working with him to get an off-loading shoe. Patient has good family support at home. P: DCP to continue to follow patient. He could potentially be discharged tomorrow for home, when sensitivities are in, and if able to go on oral antibiotics. Apurva Davila RN/Revenue Accountant
[2018-10-14] MEDS: MAGNESIUM HYDROXIDE 30 ML UDC PO (13:09)
[2018-10-14] MEDS: BISACODYL 10 MG SUPP PR (13:09)
[2018-10-14 15:40] VITALS: BP 149/92; PULSE 84; RESP 17; TEMP 36.7; O2SAT 99
[2018-10-14 18:05] VITALS: TEMP 37.4
[2018-10-14 18:09] LABS: Vancomycin Trough 21.7 ug/mL (10-20)
--- NOTE | 2018-10-14 18:43 | PM.PN.1 ---
Subjective Subjective Date Patient Seen: 10/14/18 Interval history: The patient is a 57-year-old male admitted to the hospital for osteomyelitis of the right 2nd toe. He underwent definitive amputation. The patient had cultures which are growing Staph aureus. They are methicillin sensitive. Patient initially was treated with ceftriaxone and vancomycin. The vancomycin has been discontinued. Overall the patient is making excellent progress. He reports feeling constipated. He will need a special boot as he will be weight-bearing on his heel only. Exam Vital Signs (past 8 hours): - 10/14/18 15:40 10/14/18 18:05 Temperature 98.0 F 99.3 F Pulse Rate 84 Respiratory Rate 17 Blood Pressure 149/92 H Pulse Oximetry 99 Oxygen Delivery Method Room Air Oxygen Flow Rate 0 Narrative Exam Narrative: Delightful gentleman resting comfortably in no obvious distress Lungs: Clear to auscultation Cardiac exam: Regular rate rhythm normal S1-S2 Abdomen: Soft nontender nondistended Extremities: Right foot with dressing in place Objective Labs Result Diagrams: 10/14/18 05:35 10/14/18 05:35 Labs: Laboratory Results - last 24 hr 10/14/18 10/14/18 10/14/18 05:35 05:35 17:15 WBC 7.3 RBC 4.70 Hgb 13.7 Hct 39.8 L MCV 84.8 MCH 29.2 MCHC 34.5 RDW 12.9 Plt Count 255 Neut % (Auto) 60.9 Lymph % (Auto) 24.9 L [place] % (Auto) 11.6 Eos % (Auto) 1.9 L Baso % (Auto) 0.7 Neut # (Auto) 4500 Lymph # (Auto) 1800 [place] # (Auto) 800 Eos # (Auto) 100 Baso # (Auto) 100 Sodium 139 Potassium 3.6 Chloride 104 Carbon Dioxide 28 BUN 12 Creatinine 0.70 Estimated GFR > 60.0 BUN/Creatinine Ratio 17.1 Glucose 135 H Calcium 8.8 Magnesium 1.8 Vancomycin Trough 21.7 H* Assessment & Plan Assessment & Plan narrative: Impression 1. Osteomyelitis of the right great toe status post amputation, wound cultures growing Staph aureus S that her methicillin sensitive. The patient initially was treated with vancomycin and ceftriaxone. He will continue on ceftriaxone and switched to an oral antibiotic at discharge. 2. Type 2 diabetes, oral agents being held, continue basal bolus insulin 3. Hypertension, continue atenolol, hydrochlorothiazide held in the hospital 4. Hyperlipidemia, continue statin 5. Constipation, start bowel regimen Patient is making excellent progress, anticipate discharge home tomorrow.
[2018-10-14 20:10] VITALS: BP 149/103; BP 151/100; PULSE 79; PULSE 83; RESP 18; TEMP 36.8; O2SAT 97
[2018-10-14] MEDS: INSULIN GLARGINE 100 UNIT/ML 3ML PEN 10 UNIT SUBCUT (20:14)
[2018-10-14] MEDS: ATORVASTATIN 10 MG TABLET PO (20:14)
--- NOTE | 2018-10-14 20:35 | PC.NURSE ---
Patient has been in bed part of the shift. Up multiple times independently to use the bathroom. Patient had med bm after multiple bowel meds. Patient has been calm and cooperative. CMS (+) to rt foot, pain controlled well with oxycodone.
[2018-10-15 00:26] VITALS: BP 149/98; PULSE 77; RESP 16; TEMP 36.4; O2SAT 97
[2018-10-15] MEDS: CEFAZOLIN 2 GM/100 ML FROZ.PIGGY IV ×2 (01:15→08:59)
[2018-10-15] MEDS: OXYCODONE IR 10 MG TABLET PO ×2 (02:05→08:59)
[2018-10-15 05:39] VITALS: BP 146/84; PULSE 95; RESP 18; TEMP 36.7; O2SAT 98
[2018-10-15 08:00] VITALS: BP 156/104; PULSE 79; RESP 19; TEMP 36.6; O2SAT 97
--- NOTE | 2018-10-15 08:42 | PM.PNPO.1 ---
Subjective Subjective Date Patient Seen: 10/15/18 Time Patient Seen: 08:42 Interval history: His foot is feeling better. Exam Vital Signs (past 8 hours): - 10/15/18 05:39 10/15/18 08:00 Temperature 98.0 F 97.9 F Pulse Rate 95 H 79 Respiratory Rate 18 19 Blood Pressure 146/84 H 156/104 H Pulse Oximetry 98 97 Oxygen Delivery Method Room Air Oxygen Flow Rate 0 Const Orientation: alert and oriented x3 Extrem Other: Dressing taken down. Incision with minimal drainage on dressing. Erythema improved. Good capillary refill in the toe. Objective Labs Result Diagrams: 10/14/18 05:35 10/14/18 05:35 Labs: Laboratory Results - last 24 hr 10/14/18 17:15 Vancomycin Trough 21.7 H* Assessment & Plan Post-op Postoperative Procedures: Procedures Operation Date: 10/12/18 15:45 Actual Procedures Side Surgeon p 2nd toe amputation Right Kavon Jensen MD He has come back with sensitive Staph aureus. We switched him over to Ancef last night. Should be fine for discharge home today on oral antibiotics. Follow up in my office next week.
[2018-10-15] MEDS: INSULIN ASPART 100 UNIT/ML INSULN PEN SUBCUT (08:59)
[2018-10-15] MEDS: LISINOPRIL 5 MG TABLET PO (08:59)
[2018-10-15] MEDS: DOCUSATE 100 MG CAPSULE PO (08:59)
[2018-10-15] MEDS: ATENOLOL 50 MG TABLET 100 MG PO (08:59)
[2018-10-15] MEDS: MAGNESIUM HYDROXIDE 30 ML UDC PO (09:03)
--- NOTE | 2018-10-15 10:29 | P.DS_ITS ---
History of Present Illness History of Present Illness Date Patient Seen: 10/15/18 Chief complaint: Thinks he has DVT in lower right leg Narrative: Juarez Jorge is a 57-year-old male with past medical history of diabetes, hypertension, hyperlipidemia and previous right 2nd toe ulcer which is chronic and for which he was following and wound care who presented with new right lower extremity pain for the past 2 days. Patient states he went back to work, and started noticing increasing pain 2 days ago, he did not try any new pain medications. He complains of an episode of fevers, chills, and sweatiness 2 days ago that has not returned since. He looked down at his right 2nd toe and it was enlarged and swollen, he has a picture from around 6 days ago which did not show this level of swelling and redness. He has peripheral neuropathy and cannot feel well so he had denied too much pain on his toe, but noted calf pain which has been worsening. He has a history of a DVT on the left and he states his symptoms were similar to that so he came into the emergency room for what he thought was a right lower extremity DVT. He denies any chest pain, shortness of breath, palpitations, nausea, vomiting, headaches, vision changes, or fatigue. In the emergency room, he had a right lower extremity Doppler which was negative for DVT. He did have an x-ray which showed hai osteomyelitis of his right 2nd toe. Upon my initial evaluation he has a purulent material around his 2nd toe on the R with swelling and erythema of that digit. It does not appear to proceed past the toe, and there is no redness or erythema in his calf. I have consulted Orthopedic surgery for assistance with his right 2nd toe osteomyelitis. Discharge Providers Provider Date of admission: 10/11/18 10:17 Discharge Date: 10/15/18 Primary care physician: Delphine Hansen MD Consults: 10/11/18 12:15 Consult to Orthopedic Surgery Routine Comment: Consulting Provider: Kavon Jensen Reason for consultation: R 2nd toe osteomyelitis, I+D and possible bone biopsy Has provider been notified: Yes 10/12/18 17:58 Consult to Discharge Planning Routine Comment: Consult to Physical Therapy Evaluate & Treat Comment: Physician Instructions: Evaluate and Treat Consult to Respiratory Therapy Evaluate & Treat Comment: Physician Instructions: Evaluate and treat Discharge provider: Annalee Andre MD Summary Hospital Course Discharge Diagnosis: 1. Osteomyelitis of the right great toe status post amputation, wound cultures growing Staph aureus S that is methicillin sensitive. 2. Type 2 diabetes 3. Hypertension 4. Hyperlipidemia 5. Anemia Hospital Course: 1. Osteomyelitis of the right great toe status post amputation, wound cultures growing Staph aureus, methicillin sensitive. The patient initially was treated with vancomycin and ceftriaxone. He will continue levofloxacin for 7 more days as an outpatient. He will follow up with Dr. Jensen at Orthopedics soon and will leave the dressing on until that time. He will be limited to heel walking with an offloading boot. 2. Type 2 diabetes, oral agents were held and will be resumed today at [facility]. He was treated with a combination of long-acting and short-acting insulin while in the hospital. Also started on lisinopril. 3. Hypertension, continue atenolol, hydrochlorothiazide. Also started on lisinopril. 4. Hyperlipidemia, continue statin 5. Anemia, presumably secondary to the inflammatory block of the osteomyelitis. Hgb 10.0. He will be started on iron and vitamin-C and will follow up with Wendi Armendariz in 7 days. Status at Discharge Cognitive/behavioral status at discharge: oriented Functional status at discharge: uses cane/walker Overall status at discharge: patient is progressing back to baseline Time Spent with Patient Time spent: Greater than 30 minutes Exam Vital Signs (past 8 hours): - 10/15/18 05:39 10/15/18 08:00 Temperature 98.0 F 97.9 F Pulse Rate 95 H 79 Respiratory Rate 18 19 Blood Pressure 146/84 H 156/104 H Pulse Oximetry 98 97 Oxygen Delivery Method Room Air Oxygen Flow Rate 0 Narrative Exam Narrative: He is alert and oriented x3. He is in no apparent distress. 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 Heart is regular rate and rhythm without murmur. Lungs are clear to auscultation bilaterally Extremities have no ankle edema. The right foot dressing is in place over the 2nd digit which has been amputated. Objective Labs Result Diagrams: 10/14/18 05:35 10/14/18 05:35 Labs: Laboratory Results - last 24 hr 10/14/18 17:15 Vancomycin Trough 21.7 H* Discharge Plan Discharge Plan Patient Disposition: Home Discharge comment: Follow up with Dr. Hansen next week Follow up with Dr. Jensen or his PA soon. Leave current dressing on until seen by orthopedics Use Offloading boot with heel-touch only and walker Discharge Med Rec/Prescriptions Prescriptions: New lisinopril 5 mg Tablet 5 mg PO DAILY Qty: 30 RF: 0 oxycodone 10 mg Tablet 10 mg PO [id number] PRN (Reason: Pain, Severe (7-10)) Qty: 20 RF: 0 levofloxacin 500 mg tablet 500 mg PO DAILY Qty: 10 RF: 0 ferrous sulfate 325 mg (65 mg iron) tablet 325 mg PO DAILY Qty: 30 RF: 0 ascorbic acid (vitamin C) [Vitamin C] 500 mg tablet 500 mg PO DAILY Qty: 30 RF: 0 Continued metformin 500 mg Tablet 1,000 mg PO BID RF: 0 atenolol 100 mg Tablet 100 mg PO DAILY RF: 0 hydrochlorothiazide 25 mg Tablet 25 mg PO DAILY RF: 0 Lipitor 1 tab PO DAILY RF: 0 glipizide 1 tab PO DAILY RF: 0 Follow up/Referrals: Delphine Hansen MD [Primary Care Provider] - Provider Discharge Instructions Diet: Carb-consistent/Diabetic Activity: Use walker and postop off loading boot. Heel touch only. Visit Report/Discharge Packet Instructions: DI for Toe or Foot Amputation, Oxycodone, Levofloxacin (By mouth) Discharge Data Primary Care Provider: Delphine Hansen Discharges patient from system. Discharge Date/Time: 10/15/18 13:10
--- NOTE | 2018-10-15 11:10 | PT.IPTN ---
Current Diagnoses Type 2 diabetes mellitus with other specified complication (10/11/18) Surgery Performed Operation Date: 10/12/18 15:45 Actual Procedures p 2nd toe amputation(Right) - Kavon Jensen MD Physical Therapy Treatment Note M2 PT-IP Current Condition Start: 10/13/18 08:22 Freq: NEEDED Status: Active Protocol: Document 10/13/18 09:25 HH (Rec: 10/13/18 10:49 [id number]) Physical Therapy Current Condition Current Condition Evaluation Date 10/13/18 Treatment Diagnosis Post op 2nd toe amputation at PIP joint, difficulty in walking Onset Date 10/12/18 Weight Bearing Status Weight Bearing Status Weight Bear as Tolerated Allowed Weight Bearing Amount (enter % Per MD note, primarily to use or #) (%) R heel to WB M3 PT-IP Subjective Start: 10/13/18 08:22 Freq: NEEDED Status: Active Protocol: Document 10/15/18 11:10 GGD (Rec: 10/15/18 12:01 GGD [id number]) Subjective Physical Therapy Visit Type Type Treatment Note Visit Start Time 10:35 Visit Stop Time 11:08 Total Visit Minutes 30 Number of CHILD AND ADOLESCENT PSYCHOLOGIST Visits 2 Physical Therapy Visit Comments Patient Comments Pt feels ready to go home. M4 PT-IP Mobility and Gait Start: 10/13/18 08:22 Freq: NEEDED Status: Active Protocol: Document 10/15/18 11:10 GGD (Rec: 10/15/18 12:01 GGD [id number]) PT-Bed Mobility Assessment Supine to Sit Supine to Sit Independent Scooting Scooting to Edge of Bed Independent PT-Transfer Assessment Sit to and From Stand Sit to and from Stand Standby Assistance,Use of Upper Extremities Equipment Transfer Assistive Device Gait Belt,Front Wheeled Walker Orthotic/Prosthetic Devices or Brace: No Transfers Transfer Destination Chair Transfer Ability Level of Assist Standby Assistance,Use of Upper Extremities Gait Assessment Gait Gait Assistance Required: Standby Assistance Distance (Feet) 300 Able to Maintain Weight Bearing Status Yes During Gait Assistive Devices Assistive Device None,Gait Belt,Straight Cane, Front Wheeled Walker Orthotic/Prosthetic Devices or Brace: No Gait Deviations General Gait Pattern Antalgic,Decreased Stride Length,Decreased Feet Clearance,Step-to Gait Factors Limiting Gait Function Factors Limiting Gait Function Decreased Activity Tolerance, Decreased Sensation,Limited Range of Motion,Pain Comments Gait Comments Pt ambulated with FWW x 300 and then SPC x 150 with SBA and 150 without AD wiht SBA to CGA. Stair Climbing Assessment Evaluation Level of Assist On Stairs Standby Assistance Devices Stair Climbing Assistive Devices Straight Cane,Left Railing Technique/Endurance Stair Climbing Direction Ascend and Descend Stair Climbing Technique Step to Step Number of Steps Climbed 3 Stair Climbing Set # Repetitions (reps) 1 M5 PT-IP Objective Assessments Start: 10/13/18 08:22 Freq: NEEDED Status: Active Protocol: Document 10/13/18 09:25 (Rec: 10/13/18 10:49 [id number]) Orientation Orientation/Cognition Level of Alertness Alert Orientation Name,Age,Birthday,Month,Date, Year,Day of Week,Place, Situation Language Function Ability No Deficits Noted Safety Awareness Understands Safety Issues Memory Description No Deficits Noted Gross Range of Motion Upper Extremity ROM Assessment Within Functional Limits Lower Extremity ROM Assessment Within Functional Limits Strength Upper Extremity Strength Assessment Within Functional Limits Lower Extremity Strength Assessment Right Impaired Ankle 4-/5 Coordination Assessment Gross Coordination Gross Coordination WNL Sensation Assessment Sensation Gross Sensation Right LE Impaired,Left LE Impaired Light Touch Impaired Proprioception (Position) Impaired Sensation Description Numbness Comments Sensation Comments decreased sensation to touch for B feet Muscle Tone Muscle Tone WNL Yes M6 PT-IP Treatment Start: 10/13/18 08:22 Freq: NEEDED Status: Active Protocol: Document 10/15/18 11:10 GGD (Rec: 10/15/18 12:01 GGD [id number]) Physical Therapy Treatment Equipment Issued Equipment Type and Company offloading shoe size large. M7 PT-IP Assessment and Plan Start: 10/13/18 08:22 Freq: NEEDED Status: Active Protocol: Document 10/15/18 11:10 GGD (Rec: 10/15/18 12:01 GGD [id number]) PT Summary Assessment and Plan Summary Assessment Summary Pt improving with mobility. He was able to progress gait distance. He was safe and stable with gait with offloading shoe. He was safe with stair mobility. Pt safe for home D/C when medically stable. Frequency of Treatment Frequency Of Treatment Once a Day Treatment Plan Physical Therapy Treatment Plan Bed Mobility Training,Transfer Training,Gait Training, Therapeutic Exercise,Balance Retraining,Post Op Education, Discharge Planning,Hot or Cold Pack,Neuromuscular Re-ed, Coordination Retraining Recommendations To Nursing Amount of Assist Needed Standby Assistance Discharge Recommendations PT Discharge Recommendations Home with Assistance
[2018-10-15 11:38] VITALS: BP 148/101; PULSE 73; RESP 22; TEMP 36.6; O2SAT 96
--- NOTE | 2018-10-15 13:06 | PC.NURSE ---
Discharge Pt states pain controlled with oxy. cleared to walk with offloading shoe and cane or independently by PT. d/c instructions provided to pt. Aware to f/u with PCP and Dr Jensen. Pt states he took all belongings with him. Dressing to stay in place until 1st post op visit with surgeon, Pt aware. pt left in w/c with DIRECT MARKETING ANALYST escort. Prescriptions taken down to [facility] by RN per pt request. Pt taken to pharmacy to wait for Rx with daughter.
--- NOTE | 2018-10-15 15:05 | CM.DPC ---
DCP: continued: case received and discussed in Team Rounds. Pt was deemed stable for d/c to home setting today and with oral antibiotics. He was issues an Off-Loading shoe by PT and cleared for indenendent mobility with shoe. He left for home with daughter transporting.
== END 2018-10-15 13:10 | disposition home or self-care (01) | DRG 617 ==
LOC: ED 09:26 → AC 10:17
PROVIDERS: Orthopaedic Surgery; Admitting Provider Internal Medicine; Emergency Provider Emergency Medicine; PCP Internal Medicine; Visit Provider Internal Medicine
PROC: 0Y6R0Z1 Detachment at Right 2nd Toe, High, Open Approach (ICD-10-PCS; principal; 2018-10-12 15:45)
DX: E11.69 Type 2 diabetes mellitus with other specified complication (principal); M86.171 Other acute osteomyelitis, right ankle and foot; E11.52 Type 2 diabetes mellitus with diabetic peripheral angiopathy with gangrene; I96 Gangrene, not elsewhere classified; Z79.84 Long term (current) use of oral hypoglycemic drugs; E11.621 Type 2 diabetes mellitus with foot ulcer; L97.514 Non-pressure chronic ulcer of other part of right foot with necrosis of bone; E11.65 Type 2 diabetes mellitus with hyperglycemia; E11.42 Type 2 diabetes mellitus with diabetic polyneuropathy; B95.61 Methicillin susceptible Staphylococcus aureus infection as the cause of diseases classified elsewhere; Z16.29 Resistance to other single specified antibiotic; L03.031 Cellulitis of right toe; D64.9 Anemia, unspecified; I10 Essential (primary) hypertension; E78.5 Hyperlipidemia, unspecified
CPT/HCPCS: 36415; 36591; 73630; 80048; 80053; 80202; 82962; 83036; 83605; 83690; 83735; 84145; 85025; 85610; 85651; 85730; 86140; 87040; 87070; 87075; 87077; 87186; 87205; 93971; 96365; 96375; 97116; 97161; 97530; 99283; 99284; J0690; J0696; J1170; J1644; J1650; J2405; J2704; J3010

== ENCOUNTER → 2018-12-07 10:24 | Outpatient (CLI) | payer BC, SELFPAY ==
[2018-10-11 10:27] VITALS: BMI 36.5
== END ==
PROVIDERS: PCP Internal Medicine; Visit Provider Family Medicine
DX: E11.621 Type 2 diabetes mellitus with foot ulcer (principal); L97.511 Non-pressure chronic ulcer of other part of right foot limited to breakdown of skin; L08.9 Local infection of the skin and subcutaneous tissue, unspecified; M79.671 Pain in right foot
CPT/HCPCS: 11042; 99203; 99214

== ENCOUNTER → 2019-03-29 09:14 | Outpatient (CLI) | payer BC, SELFPAY ==
[2018-10-11 10:27] VITALS: BMI 36.5
--- NOTE | 2019-03-29 | DI.US.S_ITS ---
PROCEDURE: US PERIPH VENOUS LOW EXTREM BI INDICATIONS: EVALUATE FOR DVT BILATERALLY TECHNIQUE: Real-time imaging, as well as color and pulse Doppler interrogation, were performed of the deep veins of both legs from the inguinal ligament to the popliteal fossa. COMPARISON: None. FINDINGS: Right: The common femoral, femoral and popliteal veins are normally compressible, and free of intraluminal thrombus. Color and pulse Doppler demonstrate normal phasic intravascular flow. There is normal augmentation response to distal compression maneuver. Left: The common femoral, femoral and popliteal veins are normally compressible, and free of intraluminal thrombus. Color and pulse Doppler demonstrate normal phasic intravascular flow. There is normal augmentation response to distal compression maneuver. IMPRESSION: No deep venous thrombosis. Message with callback number was left for Dr. Hansen who was involved with direct paitent care at the time of call on 03/29/19 at 11:13am. Dictated by: Meagan Romero M.D. on 03/29/2019 at 11:11 Approved by: Meagan Romero M.D. on 03/29/2019 at 11:13
== END ==
PROVIDERS: PCP Internal Medicine; Referring Provider Internal Medicine; Visit Provider Internal Medicine
DX: M79.604 Pain in right leg (principal); E11.51 Type 2 diabetes mellitus with diabetic peripheral angiopathy without gangrene; Z86.718 Personal history of other venous thrombosis and embolism; Z12.5 Encounter for screening for malignant neoplasm of prostate; N52.1 Erectile dysfunction due to diseases classified elsewhere; R68.82 Decreased libido; E78.5 Hyperlipidemia, unspecified; R53.83 Other fatigue
CPT/HCPCS: 80053; 80061; 82040; 84153; 84154; 84270; 84403; 85025; 93970

== ENCOUNTER → 2019-03-29 13:11 | Outpatient (ROUT) | payer BC, SELFPAY ==
[2018-10-11 10:27] VITALS: BMI 36.5
[2019-03-29 13:20] LABS: Add Manual Diff / Slide Review NO; Basophils Absolute Auto 100 /uL (0-100); Basophils Percent Auto 0.9 % (0-2); Eosinophils Absolute Auto 100 /uL (0-450); Eosinophils Percent Auto 1.2 % (2-4); Hematocrit 40.7 % (41-53); Hemoglobin 14.4 g/dL (13.5-17.5); Lymphocytes Absolute Auto 1400 /uL (1100-4500); Lymphocytes Percent Auto 23.1 % (25-40); Mean Corpuscular HGB Conc 35.3 % (30-36); Mean Corpuscular Hemoglobin 30.1 PG (26-34); Mean Corpuscular Volume 85.2 fL (80-100); Monocytes Absolute Auto 700 /uL (0-900); Monocytes Percent Auto 10.6 % (3-14); Neutrophils Absolute Auto 4000 /uL (1500-7000); Neutrophils Percent Auto 64.2 % (50-75); Platelet Count 221 X10^3/uL (150-400); Red Blood Cell Count 4.78 X10^6/uL (4.5-5.9); Red Cell Distribution Width 13.4 % (11.6-14.8); White Blood Cell Count 6.2 X10^3/uL (4.5-11.0)
[2019-03-29 13:34] LABS: Alanine Aminotransferase 19 IU/L (<50); Albumin 4.2 g/dL (3.5-5.0); Albumin Globulin Ratio 1.4 (1.0-2.8); Alkaline Phosphatase 83 U/L (38-126); Aspartate Aminotransferase 22 IU/L (17-59); BUN Creatinine Ratio 27.1 (6-22); Bilirubin Total 0.5 mg/dL (0.2-1.3); Blood Urea Nitrogen 19 mg/dL (9-20); Calcium 9.5 mg/dL (8.4-10.2); Carbon Dioxide 25 mmol/L (22-32); Chloride 106 mmol/L (98-107); Cholesterol 180 mg/dL (140-199); Estimated Glomerular Filt Rate > 60.0 mL/min (>60); Globulin 2.9 g/dL (1.7-4.1); Glucose 201 mg/dL (70-100); HDL Cholesterol 41 mg/dL (40-60); HEMOLYSIS 17 (0-50); LDL Cholesterol Calculated 100 mg/dL (<100); Sodium 140 mmol/L (137-145); Total Protein 7.1 g/dL (6.3-8.2); Triglycerides 193 mg/dL (35-150)
[2019-03-31 14:09] LABS: PSA Total 2.59 ng/mL (< 4.01)
[2019-04-01 09:33] LABS: Albumin 4.1 g/dL (3.6-5.1); Sex Hormone Binding Globulin 32 nmol/L (22-77); Testosterone, Bioavailable 86.7 ng/dL (110.0-575.0); Testosterone, Total 341 ng/dL (250-1100); Testosterone,Free 46.1 pg/mL (46.0-224.0)
== END ==
PROVIDERS: PCP Internal Medicine; Visit Provider Internal Medicine
DX: Z12.5 Encounter for screening for malignant neoplasm of prostate (principal); E78.5 Hyperlipidemia, unspecified; N52.1 Erectile dysfunction due to diseases classified elsewhere; R68.82 Decreased libido; R53.83 Other fatigue
CPT/HCPCS: 80053; 80061; 82040; 84153; 84154; 84270; 84403; 85025

== ENCOUNTER → 2020-06-14 09:00 | Outpatient (CLI) | payer BC, SELFPAY ==
[2018-10-11 10:27] VITALS: BMI 36.5
[2020-06-14] MEDS: COVID-19 VACC #1, MRNA(MOD) 100 MCG/0.5 ML VIAL IM (09:11)
== END ==
PROVIDERS: PCP Internal Medicine; Visit Provider Internal Medicine
DX: Z23 Encounter for immunization (principal)
CPT/HCPCS: 0011A; 91301

== ENCOUNTER → 2020-07-05 20:08 | Outpatient (ROUT) | payer BC, SELFPAY ==
[2018-10-11 10:27] VITALS: BMI 36.5
[2020-07-05 20:28] LABS: Add Manual Diff / Slide Review NO; Basophils Absolute Auto 100 /uL (0-100); Basophils Percent Auto 0.9 % (0-2); Eosinophils Absolute Auto 100 /uL (0-450); Eosinophils Percent Auto 1.8 % (2-4); Hematocrit 42.7 % (41-53); Hemoglobin 14.5 g/dL (13.5-17.5); Lymphocytes Absolute Auto 1600 /uL (1100-4500); Lymphocytes Percent Auto 23.3 % (25-40); Mean Corpuscular HGB Conc 33.8 % (30-36); Mean Corpuscular Hemoglobin 29.3 PG (26-34); Mean Corpuscular Volume 86.6 fL (80-100); Monocytes Absolute Auto 600 /uL (0-900); Monocytes Percent Auto 8.3 % (3-14); Neutrophils Absolute Auto 4400 /uL (1500-7000); Neutrophils Percent Auto 65.7 % (50-75); Platelet Count 240 X10^3/uL (150-400); Red Blood Cell Count 4.93 X10^6/uL (4.5-5.9); Red Cell Distribution Width 12.7 % (11.6-14.8); White Blood Cell Count 6.7 X10^3/uL (4.5-11.0)
[2020-07-05 20:36] LABS: Alanine Aminotransferase 19 IU/L (<50); Albumin Globulin Ratio 1.4 (1.0-2.8); Alkaline Phosphatase 104 U/L (38-126); Aspartate Aminotransferase 22 IU/L (17-59); BUN Creatinine Ratio 39.7 (6-22); Bilirubin Total 0.2 mg/dL (0.2-1.3); Blood Urea Nitrogen 27 mg/dL (9-20); Calcium 9.4 mg/dL (8.4-10.2); Carbon Dioxide 21 mmol/L (22-32); Chloride 102 mmol/L (98-107); Cholesterol 271 mg/dL (140-199); Estimated Glomerular Filt Rate > 60.0 mL/min (>60); Globulin 2.9 g/dL (1.7-4.1); Glucose 316 mg/dL (70-100); HDL Cholesterol 41 mg/dL (40-60); HEMOLYSIS < 15 (0-50); Potassium 4.3 mmol/L (3.4-5.1); Sodium 135 mmol/L (137-145); Total Protein 6.9 g/dL (6.3-8.2)
[2020-07-05 20:41] LABS: Hemoglobin A1C% w Est Avg Glu 11.3 % (4.0-6.0)
[2020-07-05 20:53] LABS: Triglycerides 770 mg/dL (35-150)
== END ==
PROVIDERS: PCP Internal Medicine; Visit Provider Physician Assistant
DX: E11.621 Type 2 diabetes mellitus with foot ulcer (principal); E78.5 Hyperlipidemia, unspecified; I10 Essential (primary) hypertension
CPT/HCPCS: 80053; 80061; 83036; 85025

== ENCOUNTER → 2020-07-20 14:34 | Outpatient (CLI) | payer BC, SELFPAY ==
[2018-10-11 10:27] VITALS: BMI 36.5
[2020-07-20] MEDS: COVID-19 VACC #2, MRNA(MOD) 100 MCG/0.5 ML VIAL IM (14:41)
== END ==
PROVIDERS: PCP Internal Medicine; Visit Provider Internal Medicine
DX: Z23 Encounter for immunization (principal)
CPT/HCPCS: 0012A; 91301

== ENCOUNTER → 2021-12-10 07:35 | Outpatient (CLI) | payer BC, SELFPAY ==
[2018-10-11 10:27] VITALS: BMI 36.5
--- NOTE | 2021-12-10 07:37 | DI.RAD.S_ITS ---
PROCEDURE: XR CHEST 2V INDICATIONS: cough x 3 weeks, COVID 13 days ago TECHNIQUE: 2 views of the chest were acquired. COMPARISON: None. FINDINGS: Surgical changes and devices: None. Lungs and pleura: Lungs are clear. No pleural effusions or pneumothorax. Mediastinum: Mediastinal contours are normal. Heart size is normal. Bones and chest wall: No suspicious bony abnormalities. Soft tissues appear unremarkable. IMPRESSION: No consolidations. Dictated by: Meagan Romero M.D. on 12/10/2021 at 8:27 Approved by: Meagan Romero M.D. on 12/10/2021 at 8:27
[2021-12-10 08:44] LABS: Add Manual Diff / Slide Review NO; Basophils Absolute Auto 100 /uL (0-100); Basophils Percent Auto 0.7 % (0-2); Eosinophils Absolute Auto 100 /uL (0-450); Eosinophils Percent Auto 0.8 % (2-4); Hematocrit 43.2 % (41-53); Hemoglobin 15.3 g/dL (13.5-17.5); Lymphocytes Absolute Auto 1400 /uL (1100-4500); Lymphocytes Percent Auto 16.7 % (25-40); Mean Corpuscular HGB Conc 35.4 % (30-36); Mean Corpuscular Hemoglobin 29.4 PG (26-34); Mean Corpuscular Volume 83.1 fL (80-100); Monocytes Absolute Auto 800 /uL (0-900); Neutrophils Absolute Auto 6100 /uL (1500-7000); Neutrophils Percent Auto 72.8 % (50-75); Platelet Count 247 X10^3/uL (150-400); Red Blood Cell Count 5.19 X10^6/uL (4.5-5.9); Red Cell Distribution Width 13.3 % (11.6-14.8); White Blood Cell Count 8.4 X10^3/uL (4.5-11.0)
[2021-12-10 08:52] LABS: Alanine Aminotransferase 26 IU/L (<50); Albumin 4.3 g/dL (3.5-5.0); Albumin Globulin Ratio 1.3 (1.0-2.8); Alkaline Phosphatase 104 U/L (38-126); Aspartate Aminotransferase 22 IU/L (17-59); BUN Creatinine Ratio 26.9 (6-22); Bilirubin Total 0.7 mg/dL (0.2-1.3); Blood Urea Nitrogen 18 mg/dL (9-20); Calcium 8.8 mg/dL (8.4-10.2); Carbon Dioxide 20 mmol/L (22-32); Chloride 103 mmol/L (98-107); Estimated Glomerular Filt Rate > 60 mL/min (>60); Globulin 3.3 g/dL (1.7-4.1); Glucose 244 mg/dL (70-100); HEMOLYSIS 30 (0-50); Sodium 137 mmol/L (137-145); Total Protein 7.6 g/dL (6.3-8.2)
== END ==
PROVIDERS: PCP Internal Medicine; Referring Provider Student in an Organized Health Care Education/Training Program; Visit Provider Student in an Organized Health Care Education/Training Program
DX: R05.9 Cough, unspecified (principal); R53.83 Other fatigue; U07.1 COVID-19; E11.9 Type 2 diabetes mellitus without complications
CPT/HCPCS: 36415; 71046; 80053; 85025

== ENCOUNTER 2022-09-15 08:24 | Emergency (ER) | payer BC, SELFPAY ==
[2018-10-11 10:27] VITALS: BMI 36.5
[2022-09-15 08:32] VITALS: BP 140/94; PULSE 95; RESP 18; O2SAT 96
--- NOTE | 2022-09-15 08:33 | ED_ITS ---
HPI - Abdominal Pain General Chief Complaint: Abdominal Pain Stated Complaint: abd pain, can't keep anything down, Diabetic Time Seen by Provider: 09/15/22 08:33 Source: patient, RN notes reviewed and old records reviewed Limitations: no limitations History of Present Illness HPI narrative: This is a 61-year-old male with history of type 2 diabetes, hypertension, dyslipidemia, atrial fibrillation with prior ablation in 2006 who presents with complaint of intermittent abdominal pain particularly on the right lower quadrant radiates a little bit towards the left for the past 4 days as well as nausea vomiting and diarrhea. Patient states any time tries to take anything by mouth he throws up. Patient states no fevers. No chest pain, no shortness of breath, no back or flank pain. Patient states he was having diarrhea with each episode but is now more just gas. Patient states no urinary symptoms, no dysuria urgency or frequency. No syncope. No new swelling in extremities. Patient notes his Trulicity was increased about 2 weeks ago. He states his sugars are not well controlled. He has had multiple surgeries including a right hip replacement, right 2nd toe amputation, hernia repair cardiac ablation in 2006 in [place]. Patient states he developed atrial fibrillation when he had a kidney stone. Home meds include atenolol, atorvastatin, HCTZ, lisinopril and Trulicity. No tobacco, no alcohol, uses THC but no other recreational drugs. Only allergies to bees he denies any drug allergies. Leonora Menchaca is his primary care provider. Patient presents today symptoms have been persistent and not improving. He states he is not currently on any pain. Related Data Home Medications Medication Instructions Recorded Confirmed Lipitor 1 tab PO DAILY 07/27/18 12/10/21 atenolol 100 mg tablet 100 mg PO DAILY 07/27/18 12/10/21 glipizide 1 tab PO DAILY 07/27/18 12/10/21 hydrochlorothiazide 25 mg tablet 25 mg PO DAILY 07/27/18 12/10/21 metformin 500 mg tablet 1,000 mg PO BID 07/27/18 12/10/21 Previous Rx's Medication Instructions Recorded ascorbic acid (vitamin C) 500 mg 500 mg PO DAILY #30 tabs 10/15/18 tablet (Vitamin C) ferrous sulfate 325 mg (65 mg 325 mg PO DAILY #30 tabs 10/15/18 iron) tablet levofloxacin 500 mg tablet 500 mg PO DAILY #10 tabs 10/15/18 lisinopril 5 mg tablet 5 mg PO DAILY #30 tabs 10/15/18 oxycodone 10 mg tablet 10 mg PO Q6HRWA PRN Pain, Severe 10/15/18 (7-10) #20 tabs ondansetron 4 mg disintegrating 4 mg PO Q6H PRN nausea and 09/15/22 tablet vomiting #10 tabs Allergies Allergy/AdvReac Type Severity Reaction Status Date / Time No Known Drug Allergies Allergy Verified 12/10/21 07:08 Review of Systems Review of Systems ROS Unobtainable: All systems reviewed & are unremarkable except as noted in HPI and below Patient History Medical History (Updated 09/15/22 @ 11:30 by Pamela Lamar DO) Diabetes DVT (deep venous thrombosis) Surgical History H/O hand surgery H/O hernia repair Social History household members: family Smoking Status: Never smoker Smoking Status: Never smoker alcohol intake frequency: a few times a month Substance Use Type: does not use Exam Narrative Exam Narrative: GENERAL: Alert and oriented x three, male in mild distress. HEENT: Head normocephalic, atraumatic, EOMI, pupils reactive, face symmetric, moist mucous membranes NECK: Supple, full range of motion CARDIOVASCULAR: Regular rate and rhythm without murmurs, rubs or gallops. No JVD, no swelling bilateral lower extremities. RESPIRATORY: Breath sounds equal bilaterally, no wheezes rales or rhonchi. ABDOMEN: Soft, nontender. Nondistended. Normoactive bowel sounds all 4 quadrants. No guarding or rebound, rigidity, no mass : No CVA tenderness EXTREMITIES: Normal range of motion, no clubbing or edema. Neurovascularly intact NEUROLOGICAL: Cranial nerves II through XII grossly intact. Moving all extremities SKIN: Warm, dry, no petechiae, no rashes or lesions. Initial Vital Signs Initial Vital Signs: Vital Signs Pulse Rate 95 H 09/15/22 08:32 Respiratory Rate 18 09/15/22 08:32 Blood Pressure 140/94 H 09/15/22 08:32 Pulse Oximetry 96 09/15/22 08:32 Course Orders Ordered: Discontinued Medications Sodium Chloride (Normal Saline 0.9%) 1,000 mls @ 1,000 mls/hr IV BOLUS ONE Stop: 09/15/22 09:41 Last Infusion: 09/15/22 10:19 Dose: 0 mls/hr Documented By: Admin: 09/15/22 08:54 Dose: 1,000 mls/hr Documented By: IVAN Ondansetron HCl (Ondansetron 4 Mg/2 Ml Inj) 4 mg IV NOW ONE Stop: 09/15/22 08:43 Last Admin: 09/15/22 08:54 Dose: 4 mg Documented By: IVAN Vital Signs Vital signs: Vital Signs - 8 hr 09/15/22 11:16 Pulse Rate 90 Respiratory Rate 17 Blood Pressure 129/94 H Pulse Oximetry 100 Oxygen Delivery Method Room Air MDM - Abdominal Pain Lab Data 09/15/22 08:37 09/15/22 08:37 Labs: Lab Results 09/15/22 09/15/22 09/15/22 Range/Units 08:37 08:37 08:37 WBC 8.4 (4.5-11.0) X10^3/uL RBC 5.14 (4.5-5.9) X10^6/uL Hgb 15.3 (13.5-17.5) g/dL Hct 43.2 (41-53) % MCV 84.1 (80-100) fL MCH 29.9 (26-34) PG MCHC 35.5 (30-36) % RDW 13.3 (11.6-14.8) % Plt Count 256 (150-400) X10^3/uL Neut % (Auto) 62.0 (50-75) % Lymph % (Auto) 25.8 (25-40) % [place] % (Auto) 10.8 (3-14) % Eos % (Auto) 0.8 L (2-4) % Baso % (Auto) 0.6 (0-2) % Neut # (Auto) 5200 (5217-3463) /uL Lymph # (Auto) 2200 (1203-8432) /uL [place] # (Auto) 900 (0-900) /uL Eos # (Auto) 100 (0-450) /uL Baso # (Auto) 100 (0-100) /uL Sodium 131 L (137-145) mmol/L Potassium 3.5 (3.4-5.1) mmol/L Chloride 94 L (98-107) mmol/L Carbon Dioxide 27 (22-32) mmol/L BUN 44 H (9-20) mg/dL Creatinine 1.40 H (0.66-1.25) mg/dL Estimated GFR 58 L (>60) mL/min BUN/Creatinine Ratio 31.4 H (6-22) Glucose 340 H (80-110) mg/dL Calcium 10.3 H (8.4-10.2) mg/dL Magnesium 1.7 (1.6-2.3) mg/dL Total Bilirubin 0.5 (0.2-1.3) mg/dL AST 27 (17-59) IU/L ALT 23 (<50) IU/L Alkaline Phosphatase 91 (38-126) U/L Total Protein 7.5 (6.3-8.2) g/dL Albumin 4.5 (3.5-5.0) g/dL Globulin 3.0 (1.7-4.1) g/dL Albumin/Globulin Ratio 1.5 (1.0-2.8) Lipase 254 (23-300) U/L Ketones 0.23 (<0.27) mmol/L Point of care testing: Point of Care Testing Glucose POC 261 Urine Dip Bedside Urine Glucose 1000 mg/dl Bedside Urine Bilirubin - Negative Bedside Urine Ketone - Negative Urine Specific [place] 1.015 Bedside Urine Occult Blood - Negative Bedside Urine pH 6 Bedside Urine Protein - Negative Bedside Urine Urobilinogen - Negative Bedside Urine Nitrite - Negative Bedside Urine Leukocytes - Negative Esterase Imaging Data CT scan - abdomen/pelvis: Radiologist's Impression: [address] [address] [address] Scan Report Signed Patient: Juarez Jorge MR#: [id number] : 1960 Acct:[id number] Age/Sex: 61 / M Date of Service: 09/15/22 Loc: ED Accession Number: [id number] ?? Procedure: CT abdomen pelvis w con Ordering Provider: Pamela Lamar D.O. PROCEDURE:? CT ABDOMEN PELVIS W CON ? INDICATIONS:? RLQ abd pain, n/v/d x 4 days. ? TECHNIQUE:? After the administration of intravenous contrast, axial sections acquired from the lung bases to the pubic symphysis.? Coronal and sagittal reformats were performed.? For radiation dose reduction, the following was used:? automated exposure control, adjustment of mA and/or kV according to patient size.? ? COMPARISON:? None. ? FINDINGS:? Image quality:? Excellent.? ? Lung bases:? Unremarkable. Heart:? No significant findings. ? ABDOMEN: Liver:? Unremarkable.? ? Gallbladder:? The gallbladder is contracted which limits evaluation.? ? Biliary ducts:? Unremarkable.? ? Pancreas:? Unremarkable.? ? Spleen:? Tiny hypodensities within the spleen, likely simple cysts.? Adrenal Glands:? Unremarkable.? ? Kidneys and Ureters:? Unremarkable.? ? ? Stomach and Bowel:? Stomach, small bowel loops, and colon are unremarkable.? Normal appendix. Peritoneum:? No abnormal intraperitoneal fluid.? No free air.? ? Ventral Wall:? Tiny umbilical hernia with small bowel abutting the defect without evidence of obstruction. Abdominal Nodes:? No retroperitoneal or mesenteric adenopathy by size criteria.? Vessels:? Aorta and inferior vena cava are normal in size.? Or minimal atherosclerotic vascular calcifications.? ? PELVIS: Pelvic Organs:? Coarse calcifications within the prostate, otherwise unremarkable. Bladder:? Decompressed, limiting evaluation. Pelvic Nodes: No enlarged lymph nodes.? Miscellaneous:? Small fat containing inguinal hernias are seen. ? ? ? Bones:? Status post right hip arthroplasty.? Degenerative changes of the spine.? ? ? IMPRESSION:? ? 1. No findings to explain patient's symptoms.? Normal appendix. 2. No acute abdominal or pelvic abnormalities. ? ? Dictated by: Hang Portillo M.D. on 09/15/2022 at 10:52 ? ? Approved by: Hang Portillo M.D. on 09/15/2022 at 10:59?? ECG Data Attestation: I personally reviewed and interpreted this ECG as follows: Prior ECG tracings: available for review Interpretation: Has a first-degree AV block rate of 70 7p are 302 QRS of [address]TC [address] No acute ST elevation. Patient has prior from 08/06/22 which appears similar. MDM Narrative Medical decision making narrative: This is a 61-year-old male who presents with complaint of abdominal pain that has been intermittent for the past 4 days along with nausea vomiting diarrhea that is now mostly gas persistent nausea and vomiting particularly when he tries to eat. Labs, IV fluids and CT abdomen pelvis as patient is complaining of right lower abdominal pain for evaluation of appendicitis versus kidney stone versus other cause. Patient's labs show sodium of 131, potassium 3.5 chloride 94 BUN of 44 with a creatinine of 1.4, glucose is 340, anion gap is 11. CBC is normal. Coags are negative. Patient is negative for ketones. Urine shows glucose no other changes consistent with infection. Patient's CT shows gallbladder contracted but otherwise unremarkable they are some tiny hypodensities in the spleen likely simple cysts and a tiny umbilical hernia with small-bowel budding but without evidence of obstruction, small fat containing inguinal hernias are seen no other acute abdominal or pelvic changes appreciated. Recheck of blood glucose is 261. Patient is tolerating oral challenge here. Discussed with patient findings from today, it is a little bit outside the typical window for his Trulicity but I would have him hold it for the next several days and follow up in the short term with his physician for recheck of his creatinine. Patient was not able to give a stool sample in the department. He is feeling much improved, he has been tolerating oral challenge without issue. Reviewed all if patient's findings from today including splenic hypodensities likely cysts, umbilical hernia and small fat containing inguinal hernias. Patient notes he has a mesh at the umbilical area. Need for follow-up all questions answered. He is aware that he needs to follow-up his renal function and continue to hydrate at home. Discharge Plan Departure Patient Disposition: Home Clinical Impression: Abdominal pain, Hyperglycemia, JERSON (acute kidney injury), Dehydration Activity Restrictions/Additional Instructions: Please follow up with your physician this week for recheck and to have your renal function and electrolytes rechecked. I would recommend holding your Trulicity for the next several days. Typically symptoms will start within several days of starting this medication. Please continue your other home medications as prescribed. Take Zofran 1 tablet every 6 hours as needed for nausea. Prescription sent to [facility] in [place]. Please return for new or worsening symptoms, new abdominal back or flank pain, persistent vomiting, black or bloody stools, lightheadedness or passing out, new chest pain or shortness of breath or other new or concerning changes. Prescriptions: New ondansetron 4 mg tablet,disintegrating 4 mg PO Q6H PRN (Reason: nausea and vomiting) Qty: 10 0RF No Action metformin 500 mg Tablet 1,000 mg PO BID atenolol 100 mg Tablet 100 mg PO DAILY hydrochlorothiazide 25 mg Tablet 25 mg PO DAILY Lipitor 1 tab PO DAILY Patient Comments: PATIENT STATES HE HAS NOT BEEN TAKING BECAUSE HE RAN OUT glipizide 1 tab PO DAILY Patient Comments: patient unsure of strength lisinopril 5 mg Tablet 5 mg PO DAILY Qty: 30 0RF oxycodone 10 mg Tablet 10 mg PO Q6HRWA PRN (Reason: Pain, Severe (7-10)) Qty: 20 0RF levofloxacin 500 mg tablet 500 mg PO DAILY Qty: 10 0RF ferrous sulfate 325 mg (65 mg iron) tablet 325 mg PO DAILY Qty: 30 0RF ascorbic acid (vitamin C) [Vitamin C] 500 mg tablet 500 mg PO DAILY Qty: 30 0RF Referrals: Delphine Hansen MD [Non-Staff] - Stand Alone Forms: Patient Portal/API
[2022-09-15 08:42] VITALS: BP 140/94; PULSE 101; RESP 17; TEMP 36.8; O2SAT 97; BMI 32.8
--- NOTE | 2022-09-15 08:42 | DI.CT.S_ITS ---
PROCEDURE: CT ABDOMEN PELVIS W CON INDICATIONS: RLQ abd pain, n/v/d x 4 days. TECHNIQUE: After the administration of intravenous contrast, axial sections acquired from the lung bases to the pubic symphysis. Coronal and sagittal reformats were performed. For radiation dose reduction, the following was used: automated exposure control, adjustment of mA and/or kV according to patient size. COMPARISON: None. FINDINGS: Image quality: Excellent. Lung bases: Unremarkable. Heart: No significant findings. ABDOMEN: Liver: Unremarkable. Gallbladder: The gallbladder is contracted which limits evaluation. Biliary ducts: Unremarkable. Pancreas: Unremarkable. Spleen: Tiny hypodensities within the spleen, likely simple cysts. Adrenal Glands: Unremarkable. Kidneys and Ureters: Unremarkable. Stomach and Bowel: Stomach, small bowel loops, and colon are unremarkable. Normal appendix. Peritoneum: No abnormal intraperitoneal fluid. No free air. Ventral Wall: Tiny umbilical hernia with small bowel abutting the defect without evidence of obstruction. Abdominal Nodes: No retroperitoneal or mesenteric adenopathy by size criteria. Vessels: Aorta and inferior vena cava are normal in size. Or minimal atherosclerotic vascular calcifications. PELVIS: Pelvic Organs: Coarse calcifications within the prostate, otherwise unremarkable. Bladder: Decompressed, limiting evaluation. Pelvic Nodes: No enlarged lymph nodes. Miscellaneous: Small fat containing inguinal hernias are seen. Bones: Status post right hip arthroplasty. Degenerative changes of the spine. IMPRESSION: 1. No findings to explain patient's symptoms. Normal appendix. 2. No acute abdominal or pelvic abnormalities. Dictated by: Hang Portillo M.D. on 09/15/2022 at 10:52 Approved by: Hang Portillo M.D. on 09/15/2022 at 10:59
[2022-09-15 08:53] LABS: Add Manual Diff / Slide Review NO; Basophils Absolute Auto 100 /uL (0-100); Basophils Percent Auto 0.6 % (0-2); Eosinophils Absolute Auto 100 /uL (0-450); Eosinophils Percent Auto 0.8 % (2-4); Hematocrit 43.2 % (41-53); Hemoglobin 15.3 g/dL (13.5-17.5); Lymphocytes Absolute Auto 2200 /uL (1100-4500); Lymphocytes Percent Auto 25.8 % (25-40); Mean Corpuscular HGB Conc 35.5 % (30-36); Mean Corpuscular Hemoglobin 29.9 PG (26-34); Mean Corpuscular Volume 84.1 fL (80-100); Monocytes Absolute Auto 900 /uL (0-900); Monocytes Percent Auto 10.8 % (3-14); Neutrophils Absolute Auto 5200 /uL (1500-7000); Platelet Count 256 X10^3/uL (150-400); Red Blood Cell Count 5.14 X10^6/uL (4.5-5.9); Red Cell Distribution Width 13.3 % (11.6-14.8); White Blood Cell Count 8.4 X10^3/uL (4.5-11.0)
[2022-09-15] MEDS: SODIUM CHLORIDE 0.9% 1,000 ML 1000 ML IV (08:54)
[2022-09-15] MEDS: ONDANSETRON 4 MG/2 ML INJ IV (08:54)
[2022-09-15 09:00] VITALS: PULSE 93; RESP 18; O2SAT 97
[2022-09-15 09:07] LABS: Magnesium 1.7 mg/dL (1.6-2.3)
[2022-09-15 09:08] LABS: Alanine Aminotransferase 23 IU/L (<50); Albumin 4.5 g/dL (3.5-5.0); Albumin Globulin Ratio 1.5 (1.0-2.8); Alkaline Phosphatase 91 U/L (38-126); Aspartate Aminotransferase 27 IU/L (17-59); BUN Creatinine Ratio 31.4 (6-22); Bilirubin Total 0.5 mg/dL (0.2-1.3); Blood Urea Nitrogen 44 mg/dL (9-20); Calcium 10.3 mg/dL (8.4-10.2); Carbon Dioxide 27 mmol/L (22-32); Chloride 94 mmol/L (98-107); Estimated Glomerular Filt Rate 58 mL/min (>60); Glucose 340 mg/dL (80-110); HEMOLYSIS 19 (0-50); Lipase 254 U/L (23-300); Potassium 3.5 mmol/L (3.4-5.1); Sodium 131 mmol/L (137-145); Total Protein 7.5 g/dL (6.3-8.2)
[2022-09-15 09:10] LABS: Ketones (Beta-Hydroxybutyrate) 0.23 mmol/L (<0.27)
[2022-09-15 09:30] VITALS: PULSE 86; RESP 24; O2SAT 97
[2022-09-15 10:13] VITALS: BP 142/90
[2022-09-15 11:16] VITALS: BP 129/94; PULSE 90; RESP 17; O2SAT 100
== END 2022-09-15 12:10 | disposition home or self-care (01) ==
PROVIDERS: Emergency Provider Emergency Medicine; PCP Physician Assistant
DX: R10.31 Right lower quadrant pain (principal); E11.65 Type 2 diabetes mellitus with hyperglycemia; N17.9 Acute kidney failure, unspecified; E86.0 Dehydration; R11.2 Nausea with vomiting, unspecified
CPT/HCPCS: 36415; 74177; 80053; 81003; 82009; 82962; 83690; 83735; 85025; 93005; 93010; 96361; 96374; 99284; J2405; Q9967

== ENCOUNTER → 2022-09-22 16:32 | Outpatient (CLI) | payer BC, SELFPAY ==
[2022-09-15 09:28] VITALS: BMI 36.5
[2022-09-22 19:33] LABS: Blood Urea Nitrogen 34 mg/dL (9-20); Carbon Dioxide 24 mmol/L (22-32); Chloride 102 mmol/L (98-107); Estimated Glomerular Filt Rate > 60 mL/min (>60); Glucose 223 mg/dL (80-110); HEMOLYSIS < 15 (0-50); Potassium 3.2 mmol/L (3.4-5.1); Sodium 136 mmol/L (137-145)
[2022-09-23 22:53] LABS: Labcorp Hemoglobin (Hb) A1c 10.8 % (4.8-5.6)
== END ==
PROVIDERS: PCP Internal Medicine; Referring Provider Internal Medicine; Visit Provider Internal Medicine
DX: E11.9 Type 2 diabetes mellitus without complications (principal); I10 Essential (primary) hypertension
CPT/HCPCS: 80048; 83036

== ENCOUNTER → 2023-01-21 06:58 | Outpatient (CLI) | payer BC, SELFPAY ==
[2022-09-15 09:28] VITALS: BMI 36.5
[2023-01-21 08:34] LABS: Alanine Aminotransferase 18 IU/L (<50); Albumin 4.2 g/dL (3.5-5.0); Albumin Globulin Ratio 1.6 (1.0-2.8); Alkaline Phosphatase 80 U/L (38-126); Aspartate Aminotransferase 18 IU/L (17-59); BUN Creatinine Ratio 23.7 (6-22); Bilirubin Total 0.6 mg/dL (0.2-1.3); Blood Urea Nitrogen 18 mg/dL (9-20); Calcium 9.6 mg/dL (8.4-10.2); Carbon Dioxide 25 mmol/L (22-32); Chloride 103 mmol/L (98-107); Cholesterol 180 mg/dL (140-199); Estimated Glomerular Filt Rate > 60 mL/min (>60); Globulin 2.7 g/dL (1.7-4.1); Glucose 210 mg/dL (80-110); HDL Cholesterol 47 mg/dL (40-60); HEMOLYSIS < 15 (0-50); LDL Cholesterol Calculated 93 mg/dL (<100); Potassium 4.7 mmol/L (3.4-5.1); Sodium 135 mmol/L (137-145); Total Protein 6.9 g/dL (6.3-8.2); Triglycerides 201 mg/dL (35-150)
[2023-01-21 11:17] LABS: Creatinine Urine Random 118.1 mg/dL
[2023-01-21 11:24] LABS: Microalbumi Creatinin Ratio Ur 31.3 ug/mg CR (<30); Microalbumin Urine Random 3.7 mg/dL (0-1.6)
== END ==
PROVIDERS: PCP Internal Medicine; Referring Provider Internal Medicine; Visit Provider Internal Medicine
DX: E11.9 Type 2 diabetes mellitus without complications (principal); E78.5 Hyperlipidemia, unspecified; I10 Essential (primary) hypertension
CPT/HCPCS: 36415; 80053; 80061; 82043; 82570; 83036

== ENCOUNTER → 2023-05-18 06:49 | Outpatient (CLI) | payer MEDICARE, OTHER, SELFPAY ==
[2022-09-15 09:28] VITALS: BMI 36.5
[2023-05-18 08:45] LABS: Hemoglobin A1C% w Est Avg Glu 8.5 % (4.0-6.0)
[2023-05-18 09:01] LABS: BUN Creatinine Ratio 32.9 (6-22); Blood Urea Nitrogen 26 mg/dL (9-20); Calcium 9.5 mg/dL (8.4-10.2); Carbon Dioxide 24 mmol/L (22-32); Chloride 105 mmol/L (98-107); Estimated Glomerular Filt Rate > 60 mL/min (>60); Glucose 259 mg/dL (80-110); HEMOLYSIS < 15 (0-50); Potassium 4.5 mmol/L (3.4-5.1); Sodium 136 mmol/L (137-145)
== END ==
PROVIDERS: PCP Internal Medicine; Referring Provider Internal Medicine; Visit Provider Internal Medicine
DX: E11.9 Type 2 diabetes mellitus without complications (principal); I10 Essential (primary) hypertension; E11.610 Type 2 diabetes mellitus with diabetic neuropathic arthropathy
CPT/HCPCS: 36415; 80048; 83036

== ENCOUNTER → 2023-06-18 08:38 | Outpatient (CLI) | payer MEDICARE, OTHER, SELFPAY ==
[2023-05-19 09:52] VITALS: BMI 36.5
--- NOTE | 2023-07-08 16:52 | DIAB.MNT ---
Initial Diabetes Medical Nutrition Therapy Assessment Name: Juarez Jorge Date: 06/18/23 Time: [id number] Dx: Type II Diabetes Arturo presents for initial Dm visit. PMH of dx 07/2015. Reports dx with HgA1c in the 9-10% range. Then made diet changes at that time and brought down into the 6's. Endorses FH of DM with mother. Last 2 HgA1c >8%. Reports reduced energy. Right toe amputation due to Charcot food. Loves milk. has not been grocery shopping. Eating out freq. h/o GLP1 with prevous PCP in 2022. After doubled dose he lost wt quickly per report and was then admitted with pancreatitis. stopped GLP1. Lives alone. Feels food prep is essential for him, otherwise he will eat out. 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 Looking for more accountability. Questions about substitute sugars. Diet recall: 7-8a: omelet with potatoes OR eggs benedict with potatoes OR eggs with cottage cheese and light yogurt OR toast with eggs sn: nuts or shake 5-6p: BLT OR soup OR crockpot meals OR sandwich 64oz water, 2c coffee, 48oz milk Looking for easy meal prep ideas. Anthropometrics: Ht: 6'1 Wt: 242# Physical Activity: walking iwth dog 0.25 mi, stretches Self-Monitoring Blood Glucose: Reports inconsistent. Diabetes Medications: 2000mg Metformin ER 10mg Glipizide ER BID Pertinent Labs: hgA1c: 10.8% 09/2022 8.5% 05/2023 Past Medical History: (Last Updated 10/31/22 @ 09:[address] MD) Carpal tunnel syndrome (~1999) Charcot foot due to diabetes mellitus (~2020) Chicken pox (~1989) DVT (deep venous thrombosis) (~2014) Fecal incontinence (~2019) HLD (hyperlipidemia) HTN (hypertension) (~1989) Kidney stones 1994, 2007 Low testosterone (~2017) Osteoarthritis (~2003) Osteomyelitis (~2018) Toe Osteomyelitis of ankle or foot, right, acute Paroxysmal atrial fibrillation Peripheral neuropathy (~2018) Type 2 diabetes mellitus Umbilical hernia Nutrition Rx: Plate Method Nutrition Diagnosis: - Food and nutrition related knowledge deficit r/t no previous MNT or Dm ed aeb diet recall and pt report - Excessive CHO intake r/t eating out frequency aeb pt report and diet recall - Inconsistent energy intake r/t long periods of fasting aeb diet recall Intervention: This participant was very receptive. Provided appropriate educational handouts. Discussed the following topics: Completed intake assessment. Discussed barriers to care. Pathophysiology of T2DM HgA1c, its correlation to blood glucose numbers, and rationale for goal Importance of self-monitoring, how often, and when to check. Suggested checking at different times to evaluate meals Plate Method, impact of macronutrients on blood sugar, meal timing Recommended servings for carbohydrates at meals and snacks Heart health nutrition Sugar Substitutes pros/cons Eating out Created SMART goals for patient self-care and success. 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 Interested in DSME classes. Angelique Adkins RDN, [facility] [place] Certified Diabetes Care and Furniture Mover Helper P: [phone] Thank you for this referral
== END ==
PROVIDERS: PCP Internal Medicine; Referring Provider Internal Medicine
DX: E11.9 Type 2 diabetes mellitus without complications (principal); Z79.84 Long term (current) use of oral hypoglycemic drugs; Z71.3 Dietary counseling and surveillance
CPT/HCPCS: 97802

== ENCOUNTER → 2023-07-29 08:29 | Outpatient (CLI) | payer MEDICARE, OTHER, SELFPAY ==
[2023-05-19 09:52] VITALS: BMI 36.5
--- NOTE | 2023-08-20 13:05 | DIAB.MNTFU ---
Follow-up Diabetes Medical Nutrition Therapy Assessment Name: Juarez Jorge Date:07/29/23 Time: 9-10a Dx: Type II Diabetes Arturo presents for Dm follow-up. Reports reduced sugar intake, which he feels has helped with sugar cravings in general. Has been conscious of meal timing and glycemic load per report. Cut out all sweets. Budgeting CHO choices at meals/snacks. Pairing fruits and nuts. Reduced eating out. No soda. Up to date on eye apptno concerns last visit States he loves milk, and is trying to reduce portions. Diet recall: 7-8a: eggs, steak, coffee Sn: nuts, cottage cheese, light yogurt, fruit 4-5p: protein and veggies Eating out once per week and reducing bread at that meal. Anthropometrics: Ht: 6'1 Wt: 242# Physical Activity:walking BID x ? mi or 30 min with dog. Resistance training with dumbbells. Interested in gym membership through [facility]. Self-Monitoring Blood Glucose: Recent FBG all elevated: 221, 194, 188, 181, 206, 234, 195, 217 mg/dl. May benefit from additional DM medication. Diabetes Medications: 2000mg Metformin ER 10mg Glipizide ER BID Pertinent Labs: hgA1c: 10.8% 09/2022 8.5% 05/2023 Past Medical History: (Last Updated 10/31/22 @ 09:[address] MD) Carpal tunnel syndrome (~1999) Charcot foot due to diabetes mellitus (~2020) Chicken pox (~1989) DVT (deep venous thrombosis) (~2014) Fecal incontinence (~2019) HLD (hyperlipidemia) HTN (hypertension) (~1989) Kidney stones 1994, 2007 Low testosterone (~2017) Osteoarthritis (~2003) Osteomyelitis (~2018) Toe Osteomyelitis of ankle or foot, right, acute Paroxysmal atrial fibrillation Peripheral neuropathy (~2018) Type 2 diabetes mellitus Umbilical hernia Nutrition Rx: Plate Method Nutrition Diagnosis: - Food and nutrition related knowledge deficit r/t no previous MNT or Dm ed aeb diet recall and pt report - Excessive CHO intake r/t eating out frequency aeb pt report and diet recall - Inconsistent energy intake r/t long periods of fasting aeb diet recall Intervention: This participant was very receptive. Provided appropriate educational handouts. Discussed the following topics: Blood sugar review and trends. Impact of food intake on results. Plate Method, impact of macronutrients on blood sugar, meal timing, carbohydrate counting, pairing macronutrients and spreading out carbohydrates for better blood glucose management Heart health nutrition: fats, fiber, and sodium Eating out and grocery shopping tips Meal planning and carb counting review Physical activity plan and progress Created SMART goals for patient self-care and success. 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 Angelique Adkins RDN, [facility] Certified Diabetes Care and Occup Therapist P: [phone] Thank you for this referral
== END ==
PROVIDERS: PCP Internal Medicine; Referring Provider Internal Medicine
DX: E11.9 Type 2 diabetes mellitus without complications (principal); Z71.3 Dietary counseling and surveillance; Z68.36 Body mass index [BMI] 36.0-36.9, adult
CPT/HCPCS: 97803

== ENCOUNTER → 2023-08-11 08:54 | Outpatient (CLI) | payer MEDICARE, OTHER, SELFPAY ==
[2023-05-19 09:52] VITALS: BMI 36.5
--- NOTE | 2023-08-21 14:59 | DIAB.FU ---
Diabetes Education Class Series: Diabetes and Nutrition Name: Arturo Jorge Date: 08/11/23 Time: [id number] States he has been working on diet and exercise. Reading more food labels and trying to incorporate wt lifting. Class topics covered: ? Debunk nutrition myths and discuss how to sustain healthy eating long-term through moderation and variety ? Define macronutrients and determine their impact on blood sugars ? Discuss macronutrient pairing, Plate Method, and carb counting ? Review general recommendations for carbohydrates ? Practice label reading ? Discuss the role of fiber in diabetes and provide examples of sources ? Review heart health nutrition: fats, fiber, and sodium ? Determine recommendations for grocery shopping and eating out ? Discuss alcohol recommendations ? Review the role of substitute sugars in diabetes management ? Set SMART goals Goal Set: Walk every day 15 min BID Follow-up: Diabetes Physiology and Medication Class in one week Angelique Adkins RDN, [facility] Certified Diabetes Care and Flight Operations Specialist P: [phone] Thank you for this referral
== END ==
LOC: DIET 08:55
PROVIDERS: PCP Internal Medicine; Referring Provider Internal Medicine
DX: E11.9 Type 2 diabetes mellitus without complications (principal); Z71.3 Dietary counseling and surveillance
CPT/HCPCS: G0109

== ENCOUNTER → 2023-08-18 07:53 | Outpatient (CLI) | payer MEDICARE, OTHER, SELFPAY ==
[2023-05-19 09:52] VITALS: BMI 36.5
--- NOTE | 2023-08-21 15:13 | DIAB.FU ---
Diabetes Education Class Series: Diabetes Physiology and Medications Name: Arturo Jorge Date: 08/18/23 Time: [id number] Reports reduced eating out since last class. Continues to make lifestyle changes. Class topics covered: ? Diabetes pathophysiology ? Discuss different types of diabetes ? Review criteria for diagnosing diabetes ? Review HgA1c measurement and associated blood sugars ? Review blood sugar monitoring safety, technique, and goals ? Discuss ways to reduce complications associated with diabetes, includes microvascular and macrovascular complications ? Review diabetes medications types, action, and side effects ? Health care visits recommended for people with T2DM ? Immunization recommended for people with T2DM ? SMART goals review Follow-up: Diabetes Lifestyle and Ongoing Support Class next week Angelique Adkins RDN, [facility] Certified Diabetes Care and Cotton Wringer P: [phone] Thank you for this referral
== END ==
PROVIDERS: PCP Internal Medicine; Referring Provider Internal Medicine
DX: E11.9 Type 2 diabetes mellitus without complications (principal); Z71.3 Dietary counseling and surveillance
CPT/HCPCS: G0109

== ENCOUNTER → 2023-08-20 06:29 | Outpatient (CLI) | payer MEDICARE, OTHER, SELFPAY ==
[2023-05-19 09:52] VITALS: BMI 36.5
[2023-08-20 08:26] LABS: Alanine Aminotransferase 19 IU/L (<50); Albumin 4.3 g/dL (3.5-5.0); Albumin Globulin Ratio 1.6 (1.0-2.8); Alkaline Phosphatase 90 U/L (38-126); Aspartate Aminotransferase 19 IU/L (17-59); BUN Creatinine Ratio 31.9 (6-22); Bilirubin Total 0.5 mg/dL (0.2-1.3); Blood Urea Nitrogen 22 mg/dL (9-20); Calcium 8.9 mg/dL (8.4-10.2); Carbon Dioxide 24 mmol/L (22-32); Chloride 107 mmol/L (98-107); Cholesterol 181 mg/dL (140-199); Estimated Glomerular Filt Rate > 60 mL/min (>60); Globulin 2.7 g/dL (1.7-4.1); Glucose 215 mg/dL (80-110); HDL Cholesterol 46 mg/dL (40-60); HEMOLYSIS < 15 (0-50); LDL Cholesterol Calculated 96 mg/dL (<100); Potassium 4.7 mmol/L (3.4-5.1); Sodium 139 mmol/L (137-145); Triglycerides 197 mg/dL (35-150)
[2023-08-20 15:44] LABS: Hemoglobin A1C% w Est Avg Glu 8.2 % (4.0-6.0)
== END ==
LOC: LAB 06:30
PROVIDERS: PCP Internal Medicine; Referring Provider Internal Medicine; Visit Provider Internal Medicine
DX: E78.5 Hyperlipidemia, unspecified (principal); E11.9 Type 2 diabetes mellitus without complications; I10 Essential (primary) hypertension; E29.1 Testicular hypofunction
CPT/HCPCS: 36415; 80053; 80061; 83036; 84402; 84403

== ENCOUNTER → 2023-08-25 09:06 | Outpatient (CLI) | payer MEDICARE, OTHER, SELFPAY ==
[2023-05-19 09:52] VITALS: BMI 36.5
--- NOTE | 2023-09-10 15:40 | DIAB.FU ---
Diabetes Education Class Series: Diabetes Lifestyle Change and Ongoing Support Name: Juarez Jorge Date: 08/25/23 Time: [id number] Arturo presents for class 3 of 3. Reports continued efforts in diet. Has also increased exercise. Saw provider, may need additional dm medication per report. Class topics covered: ? Discuss the difference between physical activity and exercise ? Determine physical activity benefits and impact on diabetes ? Review physical activity recommendations and safety ? Discuss emergency preparedness ? Discuss diabetes and emotions (diabetes burnout/distress) ? Review and practice stress management techniques ? Review support groups and community resources ? Discuss the role of family support in diabetes care ? What is going well? Challenges of diabetes? ? Set SMART goals Follow-up: JACQUELYN ELLSWORTH follow-up in 3-4 weeks for 1:1 follow-up Angelique Adkins RDN, [facility] Certified Diabetes Care and Public Welfare Director P: [phone] Thank you for this referral
== END ==
PROVIDERS: PCP Internal Medicine; Referring Provider Internal Medicine
DX: E11.9 Type 2 diabetes mellitus without complications (principal); Z71.3 Dietary counseling and surveillance
CPT/HCPCS: G0109

== ENCOUNTER → 2024-04-28 06:37 | Outpatient (CLI) | payer MEDICARE, OTHER, SELFPAY ==
[2023-05-19 09:52] VITALS: BMI 36.5
[2024-04-28 08:26] LABS: Blood Urea Nitrogen 15 mg/dL (9-20); Calcium 9.4 mg/dL (8.4-10.2); Carbon Dioxide 23 mmol/L (22-32); Chloride 104 mmol/L (98-107); Estimated Glomerular Filt Rate > 60 mL/min (>60); Glucose 159 mg/dL (80-110); HEMOLYSIS < 15 (0-50); Sodium 137 mmol/L (137-145)
== END ==
PROVIDERS: PCP Internal Medicine; Referring Provider Internal Medicine; Visit Provider Internal Medicine
DX: E11.9 Type 2 diabetes mellitus without complications (principal); I10 Essential (primary) hypertension
CPT/HCPCS: 36415; 80048; 83036

== ENCOUNTER → 2024-07-30 07:40 | Outpatient (CLI) | payer MEDICARE, OTHER, SELFPAY ==
[2023-05-19 09:52] VITALS: BMI 36.5
[2024-07-30 09:33] LABS: Creatinine Urine Random 289.92 mg/dL
[2024-07-30 09:38] LABS: Hemoglobin A1C% w Est Avg Glu 6.9 % (4.0-6.0)
[2024-07-30 09:39] LABS: Microalbumin Urine Random 8.1 mg/dL (0-1.6)
[2024-07-30 09:43] LABS: Alanine Aminotransferase 17 IU/L (<50); Albumin 4.4 g/dL (3.5-5.0); Albumin Globulin Ratio 1.7 (1.0-2.8); Alkaline Phosphatase 85 U/L (38-126); Aspartate Aminotransferase 21 IU/L (17-59); BUN Creatinine Ratio 28.9 (6-22); Bilirubin Total 0.6 mg/dL (0.2-1.3); Blood Urea Nitrogen 22 mg/dL (9-20); Calcium 9.2 mg/dL (8.4-10.2); Carbon Dioxide 26 mmol/L (22-32); Chloride 104 mmol/L (98-107); Cholesterol 178 mg/dL (140-199); Estimated Glomerular Filt Rate > 60 mL/min (>60); Globulin 2.6 g/dL (1.7-4.1); Glucose 180 mg/dL (70-99); HDL Cholesterol 47 mg/dL (40-60); HEMOLYSIS < 15 (0-50); LDL Cholesterol Calculated 95 mg/dL (<100); Potassium 4.3 mmol/L (3.4-5.1); Sodium 138 mmol/L (137-145); Triglycerides 178 mg/dL (35-150)
== END ==
PROVIDERS: PCP Internal Medicine; Referring Provider Internal Medicine; Visit Provider Internal Medicine
DX: E11.9 Type 2 diabetes mellitus without complications (principal); E78.5 Hyperlipidemia, unspecified; I10 Essential (primary) hypertension
CPT/HCPCS: 36415; 80053; 80061; 82043; 82570; 83036

== ENCOUNTER → 2024-08-01 09:32 | Outpatient (CLI) | payer MEDICARE, OTHER, SELFPAY ==
[2023-05-19 09:52] VITALS: BMI 36.5
--- NOTE | 2024-08-01 09:33 | DI.RAD.S_ITS ---
PROCEDURE: XR SHOULDER RT MIN 2V INDICATIONS: shoulder pain right TECHNIQUE: Three views of the right shoulder were acquired. COMPARISON: None. FINDINGS: Bones: 1.6 cm sclerotic density in the surgical neck is almost certainly a bone island. Enthesophyte projecting the inferior acromion may predispose extrinsic rotator cuff impingement Acromioclavicular and glenohumeral joints: Mild degeneration both joints Soft tissues: No soft tissue swelling, calcification or mass. IMPRESSION: Mild degeneration . Enthesophyte projecting from the inferior acromion may predispose to extrinsic rotator cuff impingement Dictated by: Lane Aceves M.D. on 08/02/2024 at 10:53 Approved by: Lane Aceves M.D. on 08/02/2024 at 10:55
== END ==
PROVIDERS: PCP Internal Medicine; Referring Provider Internal Medicine; Visit Provider Internal Medicine
DX: M19.011 Primary osteoarthritis, right shoulder (principal); M25.519 Pain in unspecified shoulder
CPT/HCPCS: 73030